=== PATIENT | female | born 1950 | race Caucasian/White ===

== ENCOUNTER 2016-10-31 09:06 | Emergency (ER) | payer MEDICARE ==
[2016-10-31 09:13] VITALS: BP 134/71
--- NOTE | 2016-10-31 09:57 | ER Document Report ---
HPI - HPI Pain Level: 3 Notes: Patient is a 66-year-old female who presents the ED complaining of a dry nonproductive cough 3 days. Patient states that her illness began with nasal congestion/discharge which then turned into a sore throat and then ended in a cough. Patient has not been using any exqk-[id number]-[id number] meds for her symptoms. She has not noticed any wheezing or trouble breathing. Patient states that she smokes 1 cigarette every 1-2 weeks. She denies any history of COPD or asthma. Denies any history of ID, CVA, PE. Denies any hormone use, distance travel, or recent surgery. Patient states that the cough is not worsening, but is remaining persistent. She still eating and drinking without any difficulties. Patient states that she is still able to ambulate without any difficulties or worsening of her symptoms. Denies any headache, fever, neck pain/stiffness, current sore throat, chest pain, palpitations, syncope, shortness of breath, wheeze, dyspnea, abdominal pain, nausea/vomiting/diarrhea, urinary retention, dysuria, hematuria, or rash. - ROS Notes: REVIEW OF SYSTEMS: CONSTITUTIONAL : Denies fever, chills, or sweats. Denies recent illness. EENT: Denies eye, ear, throat, or mouth pain or symptoms. Denies nasal or sinus congestion or discharge. Denies throat, tongue, or mouth swelling or difficulty swallowing. CARDIOVASCULAR: Denies chest pain. Denies palpitations or racing or irregular heart beat. Denies ankle edema. RESPIRATORY: see hpi GASTROINTESTINAL: Denies abdominal pain or distention. Denies nausea, vomiting , or diarrhea. Denies blood in vomitus, stools, or per rectum. Denies black, tarry stools. Denies constipation. GENITOURINARY: Denies difficulty urinating, painful urination, burning, frequency, blood in urine, or discharge. MUSCULOSKELETAL: Denies back or neck pain or stiffness. Denies joint pain or swelling. SKIN: Denies rash, lesions or sores. NEUROLOGICAL: Denies confusion or altered mental status. Denies passing out or loss of consciousness. Denies dizziness or lightheadedness. Denies headache. Denies weakness or paralysis or loss of use of either side. Denies problems with gait or speech. Denies sensory loss, numbness, or tingling. ALL OTHER SYSTEMS REVIEWED AND NEGATIVE. Dictation was performed using [employer] voice recognition software - CARDIOVASCULAR Cardiovascular: DENIES: Chest pain - DERM Skin Color: Normal Past Medical History - Social History Smoking Status: Current Some Day Smoker Chew tobacco use (# tins/day): No Frequency of alcohol use: None Drug Abuse: None Family History: Reviewed & Not Pertinent Patient has suicidal ideation: No Patient has homicidal ideation: No Renal/ Medical History: Denies: Hx Peritoneal Dialysis Psychiatric Medical History: Reports: Hx Depression - Anxiety - Immunizations Hx Diphtheria, Pertussis, Tetanus Vaccination: No Vertical Provider Document - CONSTITUTIONAL Agree With Documented VS: Yes Notes: PHYSICAL EXAMINATION: GENERAL: Well-appearing, well-nourished and in no acute distress. HEAD: Atraumatic, normocephalic. EYES: Pupils equal round and reactive to light, extraocular movements intact, sclera anicteric, conjunctiva are normal. ENT: EAC clear b/l. TM's intact b/l without erythema, fluid, or perforation. Nares patent and without discharge. oropharynx clear without exudates. No tonsilar hypertrophy or erythema. Moist mucous membranes. No sinus tenderness. NECK: Normal range of motion, supple without lymphadenopathy LUNGS: Breath sounds clear to auscultation bilaterally and equal. No wheezes rales or rhonchi. HEART: Regular rate and rhythm without murmurs, rubs, gallops. Extremities: No cyanosis, clubbing, or edema b/l. Peripheral pulses 2+. Capillary refill less than 3 seconds. Derrell neg. NEUROLOGICAL: Cranial nerves grossly intact. Normal speech, normal gait. Normal sensory, motor exams PSYCH: Normal mood, normal affect. SKIN: Warm, Dry, normal turgor, no rashes or lesions noted. - INFECTION CONTROL TRAVEL OUTSIDE OF THE [place] IN LAST 30 DAYS: No - RESPIRATORY O2 Sat by Pulse Oximetry: 95 Course - Re-evaluation Re-evalutation: 10/31/16 09:59 Patient is an afebrile, well-hydrated, 66-year-old female who presents the ED with acute URI, suspect viral at this time. Vitals are stable. PE otherwise unremarkable. No imaging warranted at this time based on H&P. Low suspicion/ risk for any ACS, PE, pericarditis, dissection, pneumothorax, sepsis, meningitis. Patient is aware that her condition can change from initial presentation and she needs to monitor symptoms closely and seek medical attention if any acute changes. I will send her home with a prescription for Tessalon Perles. Conservative measures otherwise for symptoms. Recheck with your PCM in the next 2-3 days. Return to the ED with any worsening/concerning symptoms otherwise as reviewed in discharge. Patient is in agreement. - Vital Signs Vital signs: Temp Pulse Resp BP Pulse Ox 98.9 F 85 20 134/71 H 95 10/31/16 09:10 10/31/16 09:10 10/31/16 09:10 10/31/16 09:10 10/31/16 09:10 Discharge - Discharge Clinical Impression: URI (upper respiratory infection) Qualifiers: URI type: unspecified URI Qualified Code(s): J06.9 - Acute upper respiratory infection, unspecified Condition: Stable Disposition: HOME, SELF-CARE Instructions: Viral Syndrome ([facility]), Upper Respiratory Illness ([facility]) Additional Instructions: Maintain adequate fluid intake Take meds as directed tylenol/ibuprofen as needed over the counter cold medication as needed for symptoms Humidified air may help F/u: with your PCM in 2-3 days for a recheck Return to the ED with any fever, worsening pain, chest pain, palpitations, syncope, worsening JOY, neck pain/stiffness, shortness of breath, wheezing, drooling, trouble swallowing/breathing, abdominal pain, n/v/d, rash, or worsening/concerning symptoms otherwise. Prescriptions: Benzonatate [Tessalon Perle 100 mg Capsule] 100 mg PO Q8HP PRN #30 cap PRN Reason: Forms: Elevated Blood Pressure, Smoking Cessation Education Referrals: CALISTA LEE DO [NO LOCAL MD] - Follow up in 3-5 days
== END 2016-10-31 10:12 | disposition home or self-care (01) ==
LOC: ER 09:06
DX: J06.9 Acute upper respiratory infection, unspecified (principal); R05 Cough; F17.210 Nicotine dependence, cigarettes, uncomplicated
CPT/HCPCS: 99283

== ENCOUNTER 2017-01-11 16:21 | Emergency (ER) | payer MEDICARE, MEDICAID ==
[2017-01-11] MEDS ORDERED: LIDOCAINE 5% (700 MG) TRANSDERMAL ADH..PATCH TP ONE (17:34)
--- NOTE | 2017-01-11 17:41 | ER Document Report ---
ED Neck/Back Problem <THOMAS AREVALO - Last Filed: 01/11/17 18:20> - General Mode of Arrival: Ambulatory Information source: Patient TRAVEL OUTSIDE OF THE [place] IN LAST 30 DAYS: No - HPI Patient complains to provider of: Pain, Neck Onset: Other - 3 days Onset: Chronic Timing: Still present Quality of pain: Sharp - Type Severity: Moderate Pain Level: 4 Context: Turning Recent injury: No Associated symptoms: Other - Left neck and headache Exacerbated by: Movement of neck Relieved by: Nothing Similar symptoms previously: Yes Recently seen / treated by doctor: No <NAS MERCHANT - Last Filed: 01/11/17 20:31> - General Chief Complaint: Neck Pain >24hrs old Stated Complaint: HEADACHE,NECK PAIN Time Seen by Provider: 01/11/17 17:20 Notes: 66-year-old female presents to ED for complaint of pain to the left shoulder that causes pain to go up her shoulder up her neck into her head. She states is been going on for about 3 days. She states she took Valium 10 mg last night but has not had any relief from this pain yet. She states she has been having these "knots in her neck they go up her head and because headaches off and on for 20 years usually she gets a trigger point injection and it goes away. ( NAS MERCHANT) - Related Data Allergies/Adverse Reactions: amoxicillin Allergy (Verified 01/11/17 16:22) Past Medical History - General Information source: Patient - Social History Smoking Status: Former Smoker Cigarette use (# per day): No Chew tobacco use (# tins/day): No Smoking Education Provided: No Frequency of alcohol use: Social Drug Abuse: None Lives with: Friend Family History: CAD, COPD, CVA, DM, Hyperlipidemia, Hypertension, Malignancy. denies: Arthritis, Thyroid Disfunction Patient has suicidal ideation: No Patient has homicidal ideation: No - Past Medical History Cardiac Medical History: Reports: None Pulmonary Medical History: Reports: None EENT Medical History: Reports: None Neurological Medical History: Reports: Hx Cerebrovascular Accident, Hx Migraine Endocrine Medical History: Reports: None Renal/ Medical History: Reports: None Malignancy Medical History: Reports: None GI Medical History: Reports: Other - Pancreatitis Musculoskeltal Medical History: Reports Hx Musculoskeletal Deformity, Reports Hx Musculoskeletal Trauma Skin Medical History: Reports None Psychiatric Medical History: Reports: Hx Anxiety, Hx Bipolar Disorder, Hx Depression Traumatic Medical History: Reports: Hx Fractures - Wrist and left foot Infectious Medical History: Reports: None Past Surgical History: Reports: Hx Orthopedic Surgery - Back surgery 2 - Immunizations Hx Diphtheria, Pertussis, Tetanus Vaccination: No <[email or web address] - Last Filed: 01/11/17 20:31> Physical Exam - Vital signs Interpretation: Normal - General General appearance: Appears well, Alert - HEENT Head: Normocephalic, Atraumatic Eyes: Normal Pupils: PERRL - Respiratory Respiratory status: No respiratory distress Chest status: Nontender Breath sounds: Normal Chest palpation: Normal - Cardiovascular Rhythm: Regular Heart sounds: Normal auscultation Murmur: No - Abdominal Inspection: Normal Distension: No distension Bowel sounds: Normal Tenderness: Nontender Organomegaly: No organomegaly - Back Back: Normal, Tender - Upper left back trapezius levator scapular area. No: Vertebra tenderness - Extremities General upper extremity: Normal inspection, Nontender, Normal color, Normal ROM , Normal temperature General lower extremity: Normal inspection, Nontender, Normal color, Normal ROM , Normal temperature, Normal weight bearing. No: Derrell's sign - Neurological Neuro grossly intact: Yes Cognition: Normal Orientation: AAOx4 Martin Coma Scale Eye Opening: Spontaneous [place] Coma Scale Verbal: Oriented [place] Coma Scale Motor: Obeys Commands [place] Coma Scale Total: 15 Speech: Normal Motor strength normal: LUE, RUE, LLE, RLE Sensory: Normal - Psychological Associated symptoms: Normal affect, Normal mood - Skin Skin Temperature: Warm Skin Moisture: Dry Skin Color: Normal <JERRIEvaristoMARTAJUNGNAS - Last Filed: 01/11/17 20:31> - Vital signs Vitals: Temp Pulse Resp BP Pulse Ox 98.1 F 80 20 140/68 H 99 01/11/17 16:28 01/11/17 16:28 01/11/17 16:28 01/11/17 16:28 01/11/17 16:28 - Vital Signs Vital signs: Temp Pulse Resp BP Pulse Ox 98.5 F 65 20 169/77 H 100 01/11/17 18:53 01/11/17 18:53 01/11/17 16:28 01/11/17 18:53 01/11/17 18:53 Procedures - Additional Procedures Trigger point injection Time performed: 18:25 <THOMAS AREVALO - Last Filed: 01/11/17 18:20> <NAS MERCHANT - Last Filed: 01/11/17 20:31> - Additional Procedures Trigger point injection Notes: 01/11/17 18:25 I was asked to perform a trigger point injection near the left levator scapula mm. 40mg of kenalog was combined with 1cc of sensorcaine in a 5cc syringe with a 25 g needle Skin was cleaned with iodine/alcohol swabs Trigger point was located and injected. pt had relief of symptoms within 30 seconds indicating appropriate placement Pt tolerated procedure well w/o complications bandaide placed no blood loss (THOMAS AREVALO) Discharge <THOMAS AREVALO - Last Filed: 01/11/17 18:20> <NAS MERCHANT - Last Filed: 01/11/17 20:31> - Discharge Clinical Impression: Myalgia Headache Qualifiers: Headache type: unspecified Headache chronicity pattern: chronic headache Intractability: not intractable Qualified Code(s): R51 - Headache Condition: Stable Disposition: HOME, SELF-CARE Instructions: Family Physicians / Practices Additional Instructions: HEADACHE: The physician does not feel that the headache you are experiencing has a serious underlying cause. Most headaches are due to emotional stress, with resultant muscle tension (tension headache). Occasionally, headaches are secondary to changes in the blood vessels of the scalp (vascular headache and migraine headache). Sometimes, a headache is the first symptom of another developing illness, such as a viral infection. You have no evidence of stroke, bleeding, meningitis, or other serious cause of your headache. The treatment of headaches varies with the severity and cause of the pain. Not all headaches need pain shots. In fact, there is evidence that using narcotics for headaches may make them worse in the long run. The physician will determine the therapy that's in your best interest. If you develop a fever, if the headache is different from any you've previously experienced, or if the headache progressively worsens, then call your physician at once or go to the emergency room. Myalagia (Muscle Pain) Myalgia is pain in the muscles. We use the word myalgia to describe muscle pain where there's no history of injury, no known muscle disease, and the muscles are normal to examination. Myalgias can be a symptom of an acute illness , such as influenza, hepatitis, or any viral illness, especially with fever. Sometimes the muscle pain comes before any other symptoms. Myalgia can also be an early symptom of inflammatory muscle disease, such as lupus. If myalgia is accompanied by an acute illness that explains the muscle pain , then no further testing needs to be done. When there's no clear reason for the pain, tests may be done to see if there's an inflammatory or other disease of the muscles. The usual treatment for myalgias is anti-inflammatory medication, such as ibuprofen. Muscle aches may be soothed with a heating pad or hot compress. If muscles remain painful for more than a few days, you'll need testing and followup. Return if a muscle becomes swollen, red, or severely painful. USE OF DIPHENHYDRAMINE: Diphenhydramine (Benadryl) is an antihistamine and has been recommended to help treat your headache and to prevent side effects of other medications used to treat headaches. The medication can be repeated four times daily. Age Elixir (12.5 mg/tsp) 25 mg pill adult 1-2 tabs Antihistamines may cause drowsiness, especially with the first dose. Do not operate machinery or drive while under the effects of the medication. Do not combine the medication with alcohol, or with any other medication without talking to your doctor. COMPAZINE FOR HEADACHE: You have received therapy for headaches, using intravenous Compazine. This treatment is dramatically successful in relieving the headache in about 50 percent of cases. When it works, it provides a rapid method of eliminating the headache without resorting to narcotics (and the problems associated with them). Most patients still feel fully alert after the Compazine, but others may be slightly drowsy. It's best not to drive or work with machinery for six to eight hours. Do not take alcohol or other medication unless you discuss it with the doctor. If you develop tightness and spasms in your muscles, especially the neck and tongue, you should return. This is a side effect which can be treated. Since he did the trigger point injection I cannot do the Lidoderm patch as we discussed. You can use Aspercreme starting tomorrow morning to the area if it continues to hurt. Take your Valium tonight before you go to bed for the muscle pain and follow-up with your primary doctor on Friday FOLLOW-UP CARE: If you have been referred to a physician for follow-up care, call the physician s office for an appointment as you were instructed or within the next two days. If you experience worsening or a significant change in your symptoms, notify the physician immediately or return to the Emergency Department at any time for re-evaluation. Prescriptions: Prochlorperazine Maleate [Compazine 10 mg Tablet] 10 mg PO ASDIR PRN #10 tablet PRN Reason: Forms: Elevated Blood Pressure Referrals: [facility] [Provider Group] - Follow up as needed
[2017-01-11] MEDS ORDERED: BUPIVACAINE HCL 0.75% INJ/PF (7.5 MG/1 ML) 10 ML SDV INJ ONE (18:09)
[2017-01-11] MEDS ORDERED: TRIAMCINOLONE ACETONIDE INJ 40 MG/1 ML VIAL INJ ONE (18:09)
[2017-01-11 18:56] VITALS: BP 169/77
== END 2017-01-11 18:56 | disposition home or self-care (01) ==
LOC: ER 16:21
DX: M25.512 Pain in left shoulder (principal); M54.2 Cervicalgia; R51 Headache; Z87.891 Personal history of nicotine dependence; Z88.0 Allergy status to penicillin; Z86.73 Personal history of transient ischemic attack (TIA), and cerebral infarction without residual deficits; Z86.69 Personal history of other diseases of the nervous system and sense organs
CPT/HCPCS: 99283; 20552; J3490

== ENCOUNTER 2017-02-02 12:23 | Emergency (ER) | payer MEDICARE, MEDICAID ==
--- NOTE | 2017-02-02 12:54 | ER Document Report ---
HPI - HPI Patient complains to provider of: Possible UTI and sinus infection Onset: Other Onset/Duration: Gradual Quality of pain: Burning Severity: Moderate Pain Level: 4 Context: Patient states she has had urinary symptoms 4 days. Denies fever, no nausea or vomiting. States she has been having problems with her sinuses for the last 4 weeks. Has not taken any riwy-obx-bftxmna medications other than normal saline spray. Associated Symptoms: Sinus pain/drainage. denies: Fever Exacerbated by: Denies Relieved by: Denies Similar symptoms previously: Yes Recently seen / treated by doctor: No - ROS ROS below otherwise negative: Yes Systems Reviewed and Negative: Yes All other systems reviewed and negative - CONSTITUTIONAL Constitutional: DENIES: Fever - EENT EENT: REPORTS: Congestion - NEURO Neurology: DENIES: Headache - CARDIOVASCULAR Cardiovascular: DENIES: Chest pain - RESPIRATORY Respiratory: DENIES: Trouble Breathing - GASTROINTESTINAL Gastrointestinal: DENIES: Abdominal Pain - URINARY Urinary: REPORTS: Dysuria, Urgency, Frequency Notes: Unsure if any blood in the urine as she has been taking Azo - REPRODUCTIVE Reproductive: DENIES: : - MUSCULOSKELETAL Musculoskeletal: DENIES: Extremity pain - DERM Skin Color: Normal Past Medical History - General Information source: Patient - Social History Smoking Status: Former Smoker Frequency of alcohol use: Occasional Drug Abuse: None Lives with: Family Family History: CAD, COPD, CVA, DM, Hyperlipidemia, Hypertension, Malignancy - Past Medical History Cardiac Medical History: Reports: Hx Heart Attack Neurological Medical History: Reports: Hx Cerebrovascular Accident, Hx Migraine Musculoskeltal Medical History: Reports Hx Musculoskeletal Deformity, Reports Hx Musculoskeletal Trauma Psychiatric Medical History: Reports: Hx Anxiety, Hx Bipolar Disorder, Hx Depression Traumatic Medical History: Reports: Hx Fractures - Wrist and left foot Past Surgical History: Reports: Hx Cardiac Catheterization, Hx Orthopedic Surgery - Back surgery 2 - Immunizations Hx Diphtheria, Pertussis, Tetanus Vaccination: No Vertical Provider Document - CONSTITUTIONAL Agree With Documented VS: Yes Exam Limitations: No Limitations General Appearance: WD/WN, No Apparent Distress - INFECTION CONTROL TRAVEL OUTSIDE OF THE [place] IN LAST 30 DAYS: No - HEENT HEENT: Atraumatic, Normocephalic - NECK Neck: Normal Inspection, Supple - RESPIRATORY Respiratory: Breath Sounds Normal, No Respiratory Distress O2 Sat by Pulse Oximetry: 94 - CARDIOVASCULAR Cardiovascular: Regular Rate, Regular Rhythm - GI/ABDOMEN Gastrointestinal: Abdomen Soft, Abdomen Tender - Mild suprapubic tenderness - BACK Back: CVA Tenderness-Right - Mild, CVA Tenderness-Left - MUSCULOSKELETAL/EXTREMETIES Musculoskeletal/Extremeties: KARL DENIS - NEURO Level of Consciousness: Awake, Alert, Appropriate - DERM Integumentary: Warm, Dry Course - Re-evaluation Re-evalutation: 02/02/17 13:39 Patient does have a urinary infection and this was discussed with her. States she does not have the money till Friday to get her antibiotic filled and is requesting an antibiotic shot. - Vital Signs Vital signs: Temp Pulse Resp BP Pulse Ox 94 02/02/17 12:48 Discharge - Discharge Clinical Impression: URI (upper respiratory infection) Qualifiers: URI type: unspecified URI Qualified Code(s): J06.9 - Acute upper respiratory infection, unspecified UTI (urinary tract infection) Qualifiers: Urinary tract infection type: site unspecified Hematuria presence: with hematuria Qualified Code(s): N39.0 - Urinary tract infection, site not specified ; R31.9 - Hematuria, unspecified; R31.9 - Hematuria, unspecified Condition: Good Disposition: HOME, SELF-CARE Instructions: Upper Respiratory Illness ([facility]), Acetaminophen, Trimethoprim- Sulfa ([facility]), Urinary Tract Infection ([facility]) Additional Instructions: Take all antibiotics as prescribed Push fluids Any nplv-[id number]-oyonyoh cough cold medication for cold symptom relief Tylenol as needed Follow-up with your doctor next week for recheck Return as needed Prescriptions: Sulfamethoxazole/Trimethoprim [Bactrim Ds Tablet] 1 each PO BID #14 tablet
[2017-02-02 13:14] LABS: APPEARANCE,URINE SLIGHTLY-CLOUDY; BILIRUBIN,URINE NEGATIVE (NEGATIVE); GLUCOSE, URINE NEGATIVE (NEGATIVE); KETONES,URINE NEGATIVE (NEGATIVE); LEUKOCYTE ESTERASE,URINE LARGE (NEGATIVE); NITRITE,URINE POSITIVE (NEGATIVE); PROTEIN,URINE NEGATIVE (NEGATIVE); URINE SPECIFIC GRAVITY 1.004
[2017-02-02] MEDS ORDERED: LIDOCAINE 1% INJ-PF (10 MG/ML) 30 ML SDV INJ ONE (13:27)
[2017-02-02] MEDS ORDERED: CEFTRIAXONE INJ 1000 MG VIAL IM ONE (13:27)
== END 2017-02-02 14:00 | disposition home or self-care (01) ==
LOC: ER 12:23
DX: J06.9 Acute upper respiratory infection, unspecified (principal); N39.0 Urinary tract infection, site not specified; R31.9 Hematuria, unspecified; Z87.891 Personal history of nicotine dependence; Z86.73 Personal history of transient ischemic attack (TIA), and cerebral infarction without residual deficits; I25.2 Old myocardial infarction
CPT/HCPCS: 99283; 96372; 87086; 87088; 81001; 87186; J3490; J0696

== ENCOUNTER 2018-02-08 13:39 | Inpatient (IN) | payer MEDICARE, MEDICAID ==
--- NOTE | 2018-02-08 14:02 | ER Document Report ---
ED General - General Chief Complaint: Urinary Problem Stated Complaint: ABDOMINAL PAIN,PAINFUL URINATION Time Seen by Provider: 02/08/18 13:45 Notes: Patient is a 69-year-old female with history of recurrent UTIs that presents to the emergency department for chief complaint of suprapubic pain. Patient states that she was diagnosed with a UTI approximately 10 days ago by her primary care physician, she was started on an antibiotic, as well as Pyridium, she took this for 7 days with no help of her symptoms, she was then switched to ciprofloxacin, she is taken 3 days of, without relief of her pain, so she decided come to the emergency department. She denies any fevers, did have some sweats and chills, but denies having any hematuria, nausea, vomiting, headache, lightheadedness, chest pain, shortness of breath, diarrhea. She also denies having any vaginal symptoms such as discharge or abnormal bleeding. She states she typically does get better with antibiotics, she has been required to see a urologist in the past, when she is had persistent pain after having a UTI. Past Medical History: Recurrent UTIs, depression Past Surgical History: Neck surgery, back surgery Social History: Denies tobacco, alcohol or illicit drug use. Family History: Reviewed and noncontributory for presenting illness Allergies: Reviewed, see documented allergy list. REVIEW OF SYSTEMS: Other than noted above, the 12 point review of systems was reviewed with the patient and were negative, all pertinent findings are included in the HPI. PHYSICAL EXAMINATION: Vital signs reviewed, nursing noted reviewed. GENERAL: Well-appearing, well-nourished and in no acute distress. HEAD: Atraumatic, normocephalic. EYES: Eyes appear normal, extraocular movements intact, sclera anicteric, conjunctiva are normal. ENT: nares patent, oropharynx clear without exudates. Moist mucous membranes. NECK: Normal range of motion, supple without lymphadenopathy LUNGS: Breath sounds clear to auscultation bilaterally and equal. No wheezes rales or rhonchi. HEART: Regular rate and rhythm without murmurs ABDOMEN: Soft, suprapubic tenderness with palpation, normoactive bowel sounds. No rebound, guarding, or rigidity. No masses appreciated. EXTREMITIES: Nontender, good range of motion, no pitting or edema. NEUROLOGICAL: No focal neurological deficits. Moves all extremities spontaneously Motor and sensory grossly intact on exam. PSYCH: Normal mood, normal affect. SKIN: Warm, Dry, normal turgor, no rashes or lesions noted on exposed skin TRAVEL OUTSIDE OF THE [place] IN LAST 30 DAYS: No - Related Data Allergies/Adverse Reactions: amoxicillin Allergy (Verified 02/08/18 13:41) Past Medical History - Social History Smoking Status: Former Smoker Family History: CAD, COPD, CVA, DM, Hyperlipidemia, Hypertension, Malignancy Patient has suicidal ideation: No Patient has homicidal ideation: No - Past Medical History Cardiac Medical History: Reports: Hx Heart Attack Neurological Medical History: Reports: Hx Cerebrovascular Accident, Hx Migraine Renal/ Medical History: Denies: Hx Peritoneal Dialysis Musculoskeletal Medical History: Reports Hx Musculoskeletal Deformity, Reports Hx Musculoskeletal Trauma Psychiatric Medical History: Reports: Hx Anxiety, Hx Bipolar Disorder, Hx Depression Traumatic Medical History: Reports: Hx Fractures - Wrist and left foot Past Surgical History: Reports: Hx Cardiac Catheterization, Hx Orthopedic Surgery - Back surgery 2 - Immunizations Hx Diphtheria, Pertussis, Tetanus Vaccination: No Physical Exam - Vital signs Vitals: Temp Pulse Resp BP Pulse Ox 99.3 F 89 16 172/100 H 99 02/08/18 13:53 02/08/18 13:53 02/08/18 13:53 02/08/18 13:53 02/08/18 13:53 Course - Re-evaluation Re-evalutation: Patient seen and examined vital signs reviewed. Laboratory data and imaging were ordered as appropriate for the patient's presenting symptoms and complaint, with consideration of any critical or life threatening conditions that may be associated with their obtained history and exam as noted above. Patient was treated with [place] initially for pain, and given IM Rocephin, she still had nitrite positive urine, still having pain, given a dose of IM Dilaudid Results were reviewed when available and demonstrated significant and severe hyponatremia of 123, possible SIADH, versus polydipsia as the patient states she has been drinking lots of free water, because of this, I feel the patient needs to be admitted for her severe hyponatremia, and also treated for her UTI. Testing for hyponatremia including serum and urine osmolality, and urine sodium were ordered. The patient was re-evaluated and was stable Evaluation was most consistent with UTI, severe hyponatremia Results were discussed with the patient at this point after careful consideration I feel that that patient should be admitted to the hospital. This was discussed with the patient that it is in the best interest for their care to be admitted for further evaluation and management. Patient agreed with this plan of care. A call was placed to the admitted physician, Dr. Encarnacion who graciously accepted the patient onto their service. *Note is created using voice recognition software and may contain spelling, syntax or grammatical errors. Laboratory 02/08/18 02/08/18 02/08/18 14:00 14:40 14:40 WBC 9.6 RBC 4.52 Hgb 9.2 L Hct 29.6 L MCV 66 L MCH 20.3 L MCHC 31.0 L RDW 18.7 H Plt Count 365 Seg Neutrophils % 77.1 Lymphocytes % 15.0 Monocytes % 6.2 Eosinophils % 1.0 Basophils % 0.7 Absolute Neutrophils 7.4 Absolute Lymphocytes 1.4 Absolute Monocytes 0.6 Absolute Eosinophils 0.1 Absolute Basophils 0.1 Sodium 123.4 L Potassium 4.4 Chloride 88 L Carbon Dioxide 24 Anion Gap 11 BUN 6 L Creatinine 0.70 Est GFR ( Amer) > 60 Est GFR (Non-Af Amer) > 60 Glucose 102 Serum Osmolality Calcium 9.8 Urine Color SARI Urine Appearance CLEAR Urine pH 7.0 Ur Specific [place] 1.004 Urine Protein NEGATIVE Urine Glucose (UA) NEGATIVE Urine Ketones NEGATIVE Urine Blood NEGATIVE Urine Nitrite POSITIVE H Urine Bilirubin NEGATIVE Urine Urobilinogen 4.0 H Ur Leukocyte Esterase NEGATIVE Urine WBC (Auto) 0 Urine RBC (Auto) 0 Urine Bacteria (Auto) TRACE Squamous Epi Cells Auto <1 Urine Mucus (Auto) RARE Urine Ascorbic Acid NEGATIVE 02/08/18 14:40 WBC RBC Hgb Hct MCV MCH MCHC RDW Plt Count Seg Neutrophils % Lymphocytes % Monocytes % Eosinophils % Basophils % Absolute Neutrophils Absolute Lymphocytes Absolute Monocytes Absolute Eosinophils Absolute Basophils Sodium Potassium Chloride Carbon Dioxide Anion Gap BUN Creatinine Est GFR ( Amer) Est GFR (Non-Af Amer) Glucose Serum Osmolality 251 L Calcium Urine Color Urine Appearance Urine pH Ur Specific [place] Urine Protein Urine Glucose (UA) Urine Ketones Urine Blood Urine Nitrite Urine Bilirubin Urine Urobilinogen Ur Leukocyte Esterase Urine WBC (Auto) Urine RBC (Auto) Urine Bacteria (Auto) Squamous Epi Cells Auto Urine Mucus (Auto) Urine Ascorbic Acid - Vital Signs Vital signs: Temp Pulse Resp BP Pulse Ox 98.9 F 62 16 127/59 H 96 02/08/18 18:38 02/08/18 19:00 02/08/18 18:38 02/08/18 18:38 02/08/18 18:38 - Laboratory Result Diagrams: 02/08/18 14:40 02/08/18 17:59 Laboratory results interpreted by me: 02/08/18 02/08/18 02/08/18 14:00 14:00 14:40 Hgb Hct MCV MCH MCHC RDW Sodium 123.4 L Chloride 88 L BUN 6 L Serum Osmolality Uric Acid Urine Nitrite POSITIVE H Urine Urobilinogen 4.0 H Urine Osmolality 178 L 02/08/18 02/08/18 02/08/18 14:40 14:40 14:40 Hgb 9.2 L Hct 29.6 L MCV 66 L MCH 20.3 L MCHC 31.0 L RDW 18.7 H Sodium Chloride BUN Serum Osmolality 251 L Uric Acid 1.6 L Urine Nitrite Urine Urobilinogen Urine Osmolality - EKG Interpretation by Me Additional EKG results interpreted by me: EKG demonstrates sinus rhythm with a ventricular rate of 65 bpm, normal axis, normal intervals, there are T wave inversions in leads V4 and V5, this is compared with prior EKG from 05/06/2017, without significant change. Procedures - Ultrasound/Bedside Ultrasound/Bedside Ultrasound: Other Notes: BLADDER US LIMITED: Reason for exam: Suprapubic pain The patient was examined in the supine position, the bladder was visualized, and scanned across, there was some sediment in the dependent aspect of the bladder, no stones, there was noted to be what appeared to be a right-sided large bladder diverticula, no overdistention of the bladder otherwise. Tenderness with palpation with the ultrasound probe during exam. Critical Care Note - Critical Care Note Total time excluding time spent on procedures (mins): 37 Comments: Critical care time 37 minutes exclusive from separate billable procedures for a patient requiring complex medical decision making, and high potential for clinical deterioration. In a patient with severe hyponatremia requiring admission to the hospital. Time spent obtaining history from patient or surrogate, discussions with consultants, development of treatment plan with patient or surrogate, evaluation of patient's response to treatment, examination of patient, ordering and performing treatments and interventions, ordering and review of laboratory studies, re-evaluation of patient's condition, ordering and review of radiographic studies and review of old charts Discharge - Discharge Clinical Impression: Hyponatremia UTI (urinary tract infection) Qualifiers: Urinary tract infection type: acute cystitis Hematuria presence: without hematuria Qualified Code(s): N30.00 - Acute cystitis without hematuria Condition: Stable Disposition: ADMITTED INPATIENT Admitting Provider: Hospitalist - Dr. Encarnacion Unit Admitted: Telemetry
[2018-02-08] MEDS ORDERED: KETOROLAC TROMETHAMINE INJ/PF 30 MG/1 ML SDV IV ONE (14:21)
[2018-02-08] MEDS ORDERED: NORMAL SALINE 500 ML IV ONE (14:21)
[2018-02-08] MEDS ORDERED: HYDROCODONE/ACETAMINOPHEN 5-325 MG TABLET PO ONE (14:34)
[2018-02-08 14:37] LABS: APPEARANCE,URINE CLEAR; BILIRUBIN,URINE NEGATIVE (NEGATIVE); COLOR,URINE AMBER; GLUCOSE, URINE NEGATIVE (NEGATIVE); KETONES,URINE NEGATIVE (NEGATIVE); LEUKOCYTE ESTERASE,URINE NEGATIVE (NEGATIVE); NITRITE,URINE POSITIVE (NEGATIVE); PROTEIN,URINE NEGATIVE (NEGATIVE); URINE SPECIFIC GRAVITY 1.004
[2018-02-08 15:06] LABS: ABSOLUTE BASOPHILS # (AUTO) 0.1 10^3/uL (0.0-0.2); ABSOLUTE EOSINOPHILS # (AUTO) 0.1 10^3/uL (0.0-0.6); ABSOLUTE LYMPHOCYTES (AUTO) 1.4 10^3/uL (0.5-4.7); ABSOLUTE MONOCYTES (AUTO) 0.6 10^3/uL (0.1-1.4); ABSOLUTE NEUT (AUTO) 7.4 10^3/uL (1.7-8.2); BASOPHILS % (AUTO) 0.7 % (0-2); HEMATOCRIT 29.6 % (36.0-47.0); HEMOGLOBIN 9.2 g/dL (12.0-15.5); MEAN CORPUSCULAR HEMOGLOBIN 20.3 pg (27.0-33.4); MEAN CORPUSCULAR VOLUME 66 fl (80-97); MONOCYTES % (AUTO) 6.2 % (3-13); PLATELET COUNT 365 10^3/uL (150-450); RED BLOOD COUNT 4.52 10^6/uL (3.72-5.28); RED CELL DISTRIBUTION WIDTH 18.7 % (11.5-14.0); SEGMENTED NEUTROPHILS % (AUTO) 77.1 % (42-78); TOTAL CELLS COUNTED % (AUTO) 100 %; WHITE BLOOD COUNT 9.6 10^3/uL (4.0-10.5)
[2018-02-08] MEDS ORDERED: CEFTRIAXONE INJ 1000 MG VIAL IM ONE (15:06)
[2018-02-08] MEDS ORDERED: LIDOCAINE 1% INJ-PF (10 MG/ML) 30 ML SDV INFIL ONE (15:06)
[2018-02-08] MEDS ORDERED: HYDROMORPHONE HCL INJ/PF 2 MG/ML AMPULE IM ONE (15:06)
[2018-02-08 15:15] LABS: ANION GAP 11 (5-19); BLOOD UREA NITROGEN 6 mg/dL (7-20); CALCIUM 9.8 mg/dL (8.4-10.2); CARBON DIOXIDE 24 mmol/L (22-30); CHLORIDE 88 mmol/L (98-107); GLUCOSE 102 mg/dL (75-110); POTASSIUM 4.4 mmol/L (3.6-5.0); SODIUM 123.4 mmol/L (137-145)
[2018-02-08] MEDS ORDERED: NORMAL SALINE 250 ML IV ONE (16:14)
[2018-02-08] MEDS ORDERED: ONDANSETRON HCL INJ/PF 4 MG/2 ML SDV IV PRN (16:23)
[2018-02-08] MEDS ORDERED: ACETAMINOPHEN 325 MG TABLET PO PRN (16:23)
[2018-02-08] MEDS ORDERED: HYDROMORPHONE HCL INJ/PF 2 MG/ML AMPULE IV PRN (16:28)
[2018-02-08] MEDS ORDERED: FUROSEMIDE INJ/PF 40 MG/4 ML SDV IV ONE (16:40)
[2018-02-08] MEDS ORDERED: LORAZEPAM INJ 2 MG/1 ML VIAL IV PRN (16:44)
[2018-02-08 16:53] LABS: URINE SODIUM 49 mmol/L (30-90)
[2018-02-08 16:56] LABS: OSMOLALITY,URINE 178 mOsm/kg (300-900)
--- NOTE | 2018-02-08 17:10 | PDOC H&P ---
History of Present Illness Admission Date/PCP: 02/08/18 16:01 CONSTANZA DOYLE MD Patient complains of: Painful urination. Suprapubic pain. History of Present Illness: STEPHANIE KOHLI is a 67 year old female with history of recurrent UTI, bladder diverticula, chronic back pain with back surgeries and neck surgeries, anxiety depression, came to the emergency room with complaints of suprapubic pain for 2 weeks. According to her she went to PCP twice initially she was started on Keflex then she is on Cipro still she is having suprapubic pain pain was intense 10 x 10 decided to came to the emergency room for further evaluation during the workup she is found to have severe hyponatremia sodium level of 123. Serum osmolality was sent it was 251. Urine osmolality and urine sodium is pending. Medical consult was called because of the low sodium. Fortunately we do not have a nephrology coverage today. Went to talk to the patient patient is alert and oriented communicating very well. Because of the recurrent UTI she said her suprapubic pain is 10 x 10. She is also complaining of nausea and vomiting at least 1-2 times for the last 2 weeks. Also saying she is drinking a lot of water and peeing a lot also. Also thinks she is on antidepressants and Lamictal/Latuda/trazodone. States she is compliant with her medications. She is alert and oriented communicating very well. Signs of any confusion. Any history of falls and dizziness. Past Medical History Cardiac Medical History: Reports: Coronary Artery Disease, Myocardial Infarction Neurological Medical History: Reports: Migraine Psychiatric Medical History: Reports: Bipolar Disorder, Depression Past Surgical History Past Surgical History: Reports: Cardiac Catheterization, Orthopedic Surgery - Back surgery 2 Social History Smoking Status: Former Smoker Frequency of Alcohol Use: Occasional - Advance Directive Resuscitation Status: Full Code Family History Family History: CAD, COPD, CVA, DM, Hyperlipidemia, Hypertension, Malignancy Parental Family History Reviewed: Yes - motherWith breast cancer father with colon cancer Children Family History Reviewed: Yes Sibling(s) Family History Reviewed.: Yes Medication/Allergy Home Medications: Diazepam 1 tab PO TID 02/08/18 Lamotrigine 1 tab PO DAILY 02/08/18 Phenazopyridine HCl [Pyridium] 100 mg PO Q8H 02/08/18 Trazodone HCl [Desyrel] 300 mg PO DAILY 02/08/18 Zolpidem Tartrate [Ambien] 10 mg PO DAILY 02/08/18 Allergies/Adverse Reactions: amoxicillin Allergy (Verified 02/08/18 13:41) Physical Exam Vital Signs: Temp Pulse Resp BP Pulse Ox 99.3 F 89 16 172/100 H 99 02/08/18 13:53 02/08/18 13:53 02/08/18 13:53 02/08/18 13:53 02/08/18 13:53 Intake & Output 02/07/18 02/08/18 02/09/18 06:59 06:59 06:59 Weight 56.5 kg General appearance: PRESENT: no acute distress, other Head exam: PRESENT: atraumatic Eye exam: PRESENT: PERRLA Mouth exam: PRESENT: moist Neck exam: ABSENT: carotid bruit, JVD, lymphadenopathy, thyromegaly Respiratory exam: PRESENT: clear to auscultation norman. ABSENT: rales, rhonchi, wheezes Cardiovascular exam: PRESENT: RRR. ABSENT: diastolic murmur, rubs, systolic murmur GI/Abdominal exam: PRESENT: normal bowel sounds, soft, other - Suprapubic tenderness on palpation.. ABSENT: distended, guarding, mass, organolmegaly, rebound, tenderness Neurological exam: PRESENT: alert, awake, oriented to person, oriented to place, oriented to time, oriented to situation, CN II-XII grossly intact. ABSENT: motor sensory deficit Psychiatric exam: PRESENT: appropriate affect, normal mood. ABSENT: homicidal ideation, suicidal ideation Results Laboratory Results: 02/08/18 14:40 02/08/18 14:40 02/08/18 02/08/18 02/08/18 14:00 14:40 14:40 WBC 9.6 RBC 4.52 Hgb 9.2 L Hct 29.6 L MCV 66 L MCH 20.3 L MCHC 31.0 L RDW 18.7 H Plt Count 365 Seg Neutrophils % 77.1 Lymphocytes % 15.0 Monocytes % 6.2 Eosinophils % 1.0 Basophils % 0.7 Absolute Neutrophils 7.4 Absolute Lymphocytes 1.4 Absolute Monocytes 0.6 Absolute Eosinophils 0.1 Absolute Basophils 0.1 Sodium 123.4 L Potassium 4.4 Chloride 88 L Carbon Dioxide 24 Anion Gap 11 BUN 6 L Creatinine 0.70 Est GFR ( Amer) > 60 Est GFR (Non-Af Amer) > 60 Glucose 102 Serum Osmolality Calcium 9.8 Urine Color SARI Urine Appearance CLEAR Urine pH 7.0 Ur Specific [place] 1.004 Urine Protein NEGATIVE Urine Glucose (UA) NEGATIVE Urine Ketones NEGATIVE Urine Blood NEGATIVE Urine Nitrite POSITIVE H Ur Leukocyte Esterase NEGATIVE Urine WBC (Auto) 0 Urine RBC (Auto) 0 02/08/18 14:40 WBC RBC Hgb Hct MCV MCH MCHC RDW Plt Count Seg Neutrophils % Lymphocytes % Monocytes % Eosinophils % Basophils % Absolute Neutrophils Absolute Lymphocytes Absolute Monocytes Absolute Eosinophils Absolute Basophils Sodium Potassium Chloride Carbon Dioxide Anion Gap BUN Creatinine Est GFR ( Amer) Est GFR (Non-Af Amer) Glucose Serum Osmolality 251 L Calcium Urine Color Urine Appearance Urine pH Ur Specific [place] Urine Protein Urine Glucose (UA) Urine Ketones Urine Blood Urine Nitrite Ur Leukocyte Esterase Urine WBC (Auto) Urine RBC (Auto) Assessment & Plan - Diagnosis (1) Hyponatremia Is this a current diagnosis for this admission?: Yes Plan: 02/08/2018-plan is to place the patient in IMCU. Nephrology consult was requested. Waiting for the urine osmolality and urine sodium levels. Requested for uric acid levels. Hyponatremia may be secondary to pain, nausea, antidepressant medications, polydipsia. Her pain I started her on Dilaudid 1 mg IV every 6 as needed. For nausea start her on Zofran 4 mg IV every 4 as needed. I am going to put her on fluid restriction 2 L/day. Given Lasix 40 mg IV 1 dose. Daily withheld antidepressants until the medication were reviewed by the e business specialist. Cortisol level was requested TSH level was requested. Neurochecks were requested. Patient fall seizure precautions were requested. strict Input and output chart was requested. (2) UTI (urinary tract infection) Qualifiers: Urinary tract infection type: acute cystitis Hematuria presence: without hematuria Qualified Code(s): N30.00 - Acute cystitis without hematuria Is this a current diagnosis for this admission?: Yes Plan: 02/08/2018-patient has history of recurrent UTI not responding to outpatient antibiotic therapy with Keflex and Cipro. Started on nitrofurantoin 100 mg p.o. twice daily. Urine cultures and blood cultures were requested. (3) Hypertension Is this a current diagnosis for this admission?: Yes Plan: Patient's latest blood pressure is 172/100. Denies any history of high blood pressure. High blood pressure may be secondary to pain and may be also due to increased fluid intake. I gave her Lasix 40 mg IV 1 dose. Patient is not in fl uid overload. But also the same time she is not hypovolemic. (4) Bipolar 1 disorder Is this a current diagnosis for this admission?: Yes Plan: 02/08/2018-patient now Lamictal, trazodone, Latuda at home. I am going to hold those medications in the setting of hyponatremia. Started her on Ativan 1 mg IV every 6 as needed for anxiety and agitation. (5) Coronary artery disease Is this a current diagnosis for this admission?: Yes Plan: 02/08/2018-patient is given the history of coronary artery disease with blocked arteries she denies she had any stent placements. Denies any chest pains at this time. - Time Time Spent: 50 to 70 Minutes Critical Time spent with patient: 15-24 minutes Medications reviewed and adjusted accordingly: Yes Anticipated discharge: Home
[2018-02-08] MEDS ORDERED: SODIUM CHLORIDE 1 GM TABLET PO ONE (17:17)
[2018-02-08 17:39] LABS: URINE AMPHETAMINES SCREEN NEGATIVE; URINE BARBITURATES SCREEN NEGATIVE; URINE BENZODIAZEPINES SCREEN NEGATIVE; URINE COCAINE SCREEN NEGATIVE; URINE MARIJUANA (THC) SCREEN NEGATIVE; URINE METHADONE SCREEN NEGATIVE; URINE PHENCYCLIDINE SCREEN NEGATIVE
[2018-02-08] MEDS: NITROFURANTOIN MONOHYD/M-CRYST 100 MG CAPSULE PO SCH (17:39)
[2018-02-08] MEDS: PHENAZOPYRIDINE HCL 100 MG TABLET PO SCH (17:39)
[2018-02-08] MEDS: DOCUSATE SODIUM 100 MG CAPSULE PO SCH (17:39)
[2018-02-08] MEDS ORDERED: SODIUM CHLORIDE 1 GM TABLET ONE (17:47)
[2018-02-08 18:24] LABS: ALANINE AMINOTRANSFERASE 18 U/L (9-52); ALBUMIN 4.5 g/dL (3.5-5.0); ALKALINE PHOSPHATASE 88 U/L (38-126); ANION GAP 11 (5-19); ASPARTATE AMINO TRANSFERASE 23 U/L (14-36); BILIRUBIN,TOTAL 0.6 mg/dL (0.2-1.3); BLOOD UREA NITROGEN 6 mg/dL (7-20); CARBON DIOXIDE 25 mmol/L (22-30); CHLORIDE 88 mmol/L (98-107); GLUCOSE 123 mg/dL (75-110); POTASSIUM 4.3 mmol/L (3.6-5.0); SODIUM 123.6 mmol/L (137-145); TOTAL PROTEIN 7.5 g/dL (6.3-8.2)
[2018-02-08] MEDS: SODIUM BICARBONATE 650 MG TABLET PO SCH (21:52)
[2018-02-08] MEDS: FAMOTIDINE 20 MG TABLET PO SCH (21:53)
[2018-02-08] MEDS: ZOLPIDEM TARTRATE 5 MG TABLET PO SCH (21:53)
[2018-02-08] MEDS ORDERED: TRAZODONE HCL 50 MG TABLET PO SCH (22:00)
--- NOTE | 2018-02-08 23:41 | EKG REPORT ---
SEVERITY:- ABNORMAL ECG - SINUS RHYTHM NONSPECIFIC T ABNORMALITIES, ANT-LAT LEADS : Confirmed by: Brooklynn Morrell 08-Feb-2018 23:40:46
[2018-02-09] MEDS ORDERED: PHENAZOPYRIDINE HCL 100 MG TABLET ONE (01:59)
[2018-02-09] MEDS: PHENAZOPYRIDINE HCL 100 MG TABLET PO SCH ×3 (02:00→21:59)
[2018-02-09 04:47] LABS: ABSOLUTE BASOPHILS # (AUTO) 0.1 10^3/uL (0.0-0.2); ABSOLUTE EOSINOPHILS # (AUTO) 0.2 10^3/uL (0.0-0.6); ABSOLUTE MONOCYTES (AUTO) 0.6 10^3/uL (0.1-1.4); ABSOLUTE NEUT (AUTO) 4.2 10^3/uL (1.7-8.2); BASOPHILS % (AUTO) 1.1 % (0-2); EOSINOPHILS % (AUTO) 2.6 % (0-6); LYMPHOCYTES % (AUTO) 28.3 % (13-45); MEAN CORPUSCULAR HEMOGLOBIN 20.3 pg (27.0-33.4); MEAN CORPUSCULAR VOLUME 66 fl (80-97); PLATELET COUNT 307 10^3/uL (150-450); RED BLOOD COUNT 4.43 10^6/uL (3.72-5.28); RED CELL DISTRIBUTION WIDTH 18.9 % (11.5-14.0); TOTAL CELLS COUNTED % (AUTO) 100 %; WHITE BLOOD COUNT 7.1 10^3/uL (4.0-10.5)
[2018-02-09 05:16] LABS: ALANINE AMINOTRANSFERASE 17 U/L (9-52); ALBUMIN 3.7 g/dL (3.5-5.0); ALKALINE PHOSPHATASE 72 U/L (38-126); ANION GAP 9 (5-19); ASPARTATE AMINO TRANSFERASE 19 U/L (14-36); BILIRUBIN,TOTAL 0.5 mg/dL (0.2-1.3); BLOOD UREA NITROGEN 11 mg/dL (7-20); CALCIUM 9.4 mg/dL (8.4-10.2); CARBON DIOXIDE 27 mmol/L (22-30); CHLORIDE 89 mmol/L (98-107); CHOLESTEROL 165.43 mg/dL (0-200); CREATINE KINASE 37 U/L (30-135); GLUCOSE 105 mg/dL (75-110); POTASSIUM 3.8 mmol/L (3.6-5.0); SODIUM 125.3 mmol/L (137-145); TOTAL PROTEIN 6.1 g/dL (6.3-8.2); TRIGLYCERIDES 83 mg/dL (<150)
[2018-02-09 05:27] LABS: DIRECT LDL 90 mg/dL (<100)
[2018-02-09 05:30] LABS: NT PRO BNP 1070 pg/mL (5-900)
[2018-02-09 05:38] LABS: TROPONIN I < 0.012 ng/mL
[2018-02-09] MEDS: OXYCODONE-ACETAMINOPHEN 5-325 MG TABLET PO PRN ×4 (06:18→22:47)
--- NOTE | 2018-02-09 06:51 | EKG REPORT ---
SEVERITY:- ABNORMAL ECG - SINUS RHYTHM PROBABLE ANTEROSEPTAL INFARCT, AGE INDETERM : Confirmed by: Brooklynn Morrell 09-Feb-2018 06:50:28
--- NOTE | 2018-02-09 09:47 | PDOC PROGRESS REPORT ---
Subjective Progress Note for:: 02/09/18 Subjective:: 02/09/2018 no acute events overnight dilated was changed to Percocet as per patient's request. Serum sodium on admission is 123 improved to 125.3. Patient is afebrile. Reason For Visit: HYPONATREMIA Physical Exam Vital Signs: Temp Pulse Resp BP Pulse Ox 97.8 F 75 16 108/54 L 95 02/09/18 07:10 02/09/18 07:10 02/09/18 07:10 02/09/18 07:10 02/09/18 07:10 Intake & Output 02/08/18 02/09/18 02/10/18 06:59 06:59 06:59 Intake Total 236 Output Total 1500 Balance -1264 Weight 59.5 kg General appearance: PRESENT: no acute distress Head exam: PRESENT: atraumatic Eye exam: PRESENT: PERRLA Mouth exam: PRESENT: moist Neck exam: ABSENT: carotid bruit, JVD, lymphadenopathy, thyromegaly Respiratory exam: PRESENT: clear to auscultation norman. ABSENT: rales, rhonchi, wheezes Cardiovascular exam: PRESENT: RRR. ABSENT: diastolic murmur, rubs, systolic murmur GI/Abdominal exam: PRESENT: normal bowel sounds, soft. ABSENT: distended, guarding, mass, organolmegaly, rebound, tenderness Extremities exam: PRESENT: full ROM. ABSENT: calf tenderness, clubbing, pedal edema Neurological exam: PRESENT: alert, awake, oriented to person, oriented to place, oriented to time, oriented to situation, CN II-XII grossly intact. ABSENT: motor sensory deficit Psychiatric exam: PRESENT: appropriate affect, normal mood. ABSENT: homicidal ideation, suicidal ideation Results Laboratory Results: 02/09/18 04:30 02/09/18 04:30 02/08/18 02/08/18 02/08/18 14:00 14:00 14:40 WBC RBC Hgb Hct MCV MCH MCHC RDW Plt Count Seg Neutrophils % Lymphocytes % Monocytes % Eosinophils % Basophils % Absolute Neutrophils Absolute Lymphocytes Absolute Monocytes Absolute Eosinophils Absolute Basophils Sodium 123.4 L Potassium 4.4 Chloride 88 L Carbon Dioxide 24 Anion Gap 11 BUN 6 L Creatinine 0.70 Est GFR ( Amer) > 60 Est GFR (Non-Af Amer) > 60 Glucose 102 Serum Osmolality Uric Acid Calcium 9.8 Magnesium Total Bilirubin AST ALT Alkaline Phosphatase Total Protein Albumin Triglycerides Cholesterol LDL Cholesterol Direct VLDL Cholesterol HDL Cholesterol TSH Urine Color SARI Urine Appearance CLEAR Urine pH 7.0 Ur Specific [place] 1.004 Urine Protein NEGATIVE Urine Glucose (UA) NEGATIVE Urine Ketones NEGATIVE Urine Blood NEGATIVE Urine Nitrite POSITIVE H Ur Leukocyte Esterase NEGATIVE Urine WBC (Auto) 0 Urine RBC (Auto) 0 Urine Osmolality 178 L 02/08/18 02/08/18 02/08/18 14:40 14:40 14:40 WBC 9.6 RBC 4.52 Hgb 9.2 L Hct 29.6 L MCV 66 L MCH 20.3 L MCHC 31.0 L RDW 18.7 H Plt Count 365 Seg Neutrophils % 77.1 Lymphocytes % 15.0 Monocytes % 6.2 Eosinophils % 1.0 Basophils % 0.7 Absolute Neutrophils 7.4 Absolute Lymphocytes 1.4 Absolute Monocytes 0.6 Absolute Eosinophils 0.1 Absolute Basophils 0.1 Sodium Potassium Chloride Carbon Dioxide Anion Gap BUN Creatinine Est GFR ( Amer) Est GFR (Non-Af Amer) Glucose Serum Osmolality 251 L Uric Acid 1.6 L Calcium Magnesium Total Bilirubin AST ALT Alkaline Phosphatase Total Protein Albumin Triglycerides Cholesterol LDL Cholesterol Direct VLDL Cholesterol HDL Cholesterol TSH Urine Color Urine Appearance Urine pH Ur Specific [place] Urine Protein Urine Glucose (UA) Urine Ketones Urine Blood Urine Nitrite Ur Leukocyte Esterase Urine WBC (Auto) Urine RBC (Auto) Urine Osmolality 02/08/18 02/09/18 02/09/18 17:59 04:30 04:30 WBC 7.1 RBC 4.43 Hgb 9.0 L Hct 29.0 L MCV 66 L MCH 20.3 L MCHC 31.0 L RDW 18.9 H Plt Count 307 Seg Neutrophils % 59.0 Lymphocytes % 28.3 Monocytes % 9.0 Eosinophils % 2.6 Basophils % 1.1 Absolute Neutrophils 4.2 Absolute Lymphocytes 2.0 Absolute Monocytes 0.6 Absolute Eosinophils 0.2 Absolute Basophils 0.1 Sodium 123.6 L 125.3 L Potassium 4.3 3.8 Chloride 88 L 89 L Carbon Dioxide 25 27 Anion Gap 11 9 BUN 6 L 11 Creatinine 0.74 0.84 Est GFR ( Amer) > 60 > 60 Est GFR (Non-Af Amer) > 60 > 60 Glucose 123 H 105 Serum Osmolality Uric Acid Calcium 10.0 9.4 Magnesium 1.8 Total Bilirubin 0.6 0.5 AST 23 19 ALT 18 17 Alkaline Phosphatase 88 72 Total Protein 7.5 6.1 L Albumin 4.5 3.7 Triglycerides 83 Cholesterol 165.43 LDL Cholesterol Direct 90 VLDL Cholesterol 17.0 HDL Cholesterol 59 TSH Urine Color Urine Appearance Urine pH Ur Specific [place] Urine Protein Urine Glucose (UA) Urine Ketones Urine Blood Urine Nitrite Ur Leukocyte Esterase Urine WBC (Auto) Urine RBC (Auto) Urine Osmolality 02/09/18 04:30 WBC RBC Hgb Hct MCV MCH MCHC RDW Plt Count Seg Neutrophils % Lymphocytes % Monocytes % Eosinophils % Basophils % Absolute Neutrophils Absolute Lymphocytes Absolute Monocytes Absolute Eosinophils Absolute Basophils Sodium Potassium Chloride Carbon Dioxide Anion Gap BUN Creatinine Est GFR ( Amer) Est GFR (Non-Af Amer) Glucose Serum Osmolality Uric Acid Calcium Magnesium Total Bilirubin AST ALT Alkaline Phosphatase Total Protein Albumin Triglycerides Cholesterol LDL Cholesterol Direct VLDL Cholesterol HDL Cholesterol TSH 1.56 Urine Color Urine Appearance Urine pH Ur Specific [place] Urine Protein Urine Glucose (UA) Urine Ketones Urine Blood Urine Nitrite Ur Leukocyte Esterase Urine WBC (Auto) Urine RBC (Auto) Urine Osmolality 02/08/18 02/08/18 02/08/18 14:40 14:40 22:24 Creatine Kinase 48 48 Troponin I < 0.012 NT-Pro-B Natriuret Pep 02/08/18 02/09/18 02/09/18 22:24 04:30 04:30 Creatine Kinase 37 Troponin I < 0.012 < 0.012 NT-Pro-B Natriuret Pep 1070 H Assessment & Plan - Diagnosis (1) Hyponatremia Is this a current diagnosis for this admission?: Yes Plan: 02/08/2018-plan is to place the patient in [facility]. Nephrology consult was requested. Waiting for the urine osmolality and urine sodium levels. Requested for uric acid levels. Hyponatremia may be secondary to pain, nausea, antid epressant medications, polydipsia. Her pain I started her on Dilaudid 1 mg IV every 6 as needed. For nausea start her on Zofran 4 mg IV every 4 as needed. I am going to put her on fluid restriction 2 L/day. Given Lasix 40 mg IV 1 dose. Daily withheld antidepressants until the medication were reviewed by the tobacco sample puller. Cortisol level was requested TSH level was requested. Neurochecks were requested. Patient fall seizure precautions were requested. strict Input and output chart was requested. 02/09/2018-patient was admitted to [facility] for hyponatremia. Admission sodium is 123. Improved to 125. Patient is asymptomatic since the admission. Probably hyponatremia is chronic. He was given Lasix 40 mg IV 1 dose, fluid restriction was placed 1.5 L/day. And also started on sodium tablet 3000 mg p.o. twice daily. Check input and output chest was requested. Serum osmolality at the time of admission is 251 and a urine osmolality is 175 suggesting may be polydipsia. I am going to repeat the serum osmolality urine osmolality today and repeat the sodium this evening. For the labs for tomorrow also. We are going to get in touch with Dr. Evans office to see if he is able to see the patient today. Neurochecks are negative so far. Patient psychiatric medications are on hold. Am going to put a consult for psych. CT chest without contrast was requested to rule out any malignancy. TSH is normal 1.56, cortisol level is 6.62. (2) UTI (urinary tract infection) Qualifiers: Urinary tract infection type: acute cystitis Hematuria presence: without hematuria Qualified Code(s): N30.00 - Acute cystitis without hematuria Is this a current diagnosis for this admission?: Yes Plan: 02/08/2018-patient has history of recurrent UTI not responding to outpatient antibiotic therapy with Keflex and Cipro. Started on nitrofurantoin 100 mg p.o. twice daily. Urine cultures and blood cultures were requested. 02/09/2018-patient has a history of a recurrent UTI. Urine cultures are pending. Patient was placed on nitrofurantoin. Blood cultures are also pending. (3) Hypertension Is this a current diagnosis for this admission?: Yes Plan: Patient's latest blood pressure is 172/100. Denies any history of high blood pressure. High blood pressure may be secondary to pain and may be also due to increased fluid intake. I gave her Lasix 40 mg IV 1 dose. Patient is not in fluid overload. But also the same time she is not hypovolemic. 02/09/2018 patient's blood pressure is 172/100 yesterday. May be secondary to pain. Blood pressure today is 108/54. She is not on any antihypertensives. (4) Bipolar 1 disorder Is this a current diagnosis for this admission?: Yes Plan: 02/08/2018-patient now Lamictal, trazodone, Latuda at home. I am going to hold those medications in the setting of hyponatremia. Started her on Ativan 1 mg IV every 6 as needed for anxiety and agitation. 02/09/2018-patient has history of bipolar disorder with depression patient is on Lamictal trazodone Latuda at home. Because of the hyponatremia those medications are on hold. Plan is to request for psych consult. (5) Coronary artery disease Is this a current diagnosis for this admission?: Yes Plan: 02/08/2018-patient is given the history of coronary artery disease with blocked arteries she denies she had any stent placements. Denies any chest pains at this time. 02/09/2018 patient is given the history of coronary artery disease. According to her she has blocked arteries never had any stent placements. No complaints of chest pain during the hospital stay. - Time Time Spent with patient: 15-24 minutes Medications reviewed and adjusted accordingly: Yes Anticipated discharge: Home
[2018-02-09] MEDS ORDERED: ZOLPIDEM TARTRATE 5 MG TABLET PO SCH (10:00)
[2018-02-09] MEDS: SODIUM BICARBONATE 650 MG TABLET PO SCH ×2 (10:34→21:59)
[2018-02-09] MEDS: NITROFURANTOIN MONOHYD/M-CRYST 100 MG CAPSULE PO SCH ×2 (10:34→17:44)
[2018-02-09] MEDS: FAMOTIDINE 20 MG TABLET PO SCH ×2 (10:34→21:59)
[2018-02-09] MEDS: DOCUSATE SODIUM 100 MG CAPSULE PO SCH ×2 (10:34→17:44)
[2018-02-09] MEDS: ENOXAPARIN SODIUM INJ 40 MG/0.4 ML DISP.SYRIN SUBCUT SCH (10:34)
--- NOTE | 2018-02-09 10:34 | RADIOLOGY REPORT (SQ) ---
EXAM DESCRIPTION: CT CHEST WITHOUT COMPLETED DATE/TIME: 02/09/2018 10:05 am REASON FOR STUDY: r/o maligency COMPARISON: None. TECHNIQUE: CT scan performed of the chest without intravenous contrast. Images reviewed with lung, soft tissue and bone windows. Reconstructed coronal and sagittal MPR images reviewed. All images st ored on PACS. All CT scanners at this facility use dose modulation, iterative reconstruction, and/or weight based d osing when appropriate to reduce radiation dose to as low as reasonably achievable (ALARA). [facility]: Dose Right [facility]: CareDose [facility]: Dose Right [facility]: Teradose 4D [facility]: Plazes RADIATION DOSE: CT Rad equipment meets quality standard of care and radiation dose reduction techniq ues were employed. CTDIvol: 4.1 mGy. DLP: 148 mGy-cm. mGy. LIMITATIONS: No technical limitations. FINDINGS: LUNGS AND PLEURA: No masses, infiltrates, or pneumothorax. Scattered parenchymal scarring . No pleural effusions or pleural calcifications. HILAR AND MEDIASTINAL STRUCTURES: No identified masses or abnormal nodes. No obvious aneurysm. HEART AND VASCULAR STRUCTURES: No aneurysm. No pericardial effusion. UPPER ABDOMEN: No significant findings. Limited exam. THYROID AND OTHER SOFT TISSUES: No masses. No adenopathy. BONES: No significant finding. Degenerative changes in the spine. HARDWARE: None in the chest. There is tubing in the lumen of the stomach. Surgical clips adjacent t o the stomach and in the region of the gastroesophageal junction. OTHER: No other significant findings. IMPRESSION: 1. SCATTERED PARENCHYMAL SCARRING IN THE LUNGS. NO OTHER SIGNIFICANT FINDING ON NON-CONTRASTED CHEST CT. 2. SURGICAL CLIPS ADJACENT TO THE STOMACH AND GASTROESOPHAGEAL JUNCTION. THERE IS TUBING CONTAINED W ITHIN THE LUMEN OF THE STOMACH. UNCLEAR TO THE NATURE OF THIS TUBING. RECOMMEND CORRELATION WITH ANY PRIOR PROCEDURES. TECHNICAL DOCUMENTATION: JOB ID: [id number] Quality ID # [id number]: Final reports with documentation of one or more dose reduction techniques (e.g., Au tomated exposure control, adjustment of the mA and/or kV according to patient size, use of iterative reconstruction technique) 2010 [employer]- All Rights Reserved Reading location - IP/workstation name: [facility]
--- NOTE | 2018-02-09 13:24 | PDOC CONSULTATION ---
Consultation Consult Date: 02/09/18 Attending physician:: GAVI VALDEZ Consult reason:: I was asked to see the patient due to hyponatremia. History of Present Illness Admission Date/PCP: 02/08/18 16:01 CONSTANZA DOYLE MD History of Present Illness: STEPHANIE KOHLI is a 67 year old female with history of coronary artery disease, bipolar disorder and depression who was admitted yesterday because of suprapubic pain and hyponatremia. Patient said that she has been having suprapubic pain for the last 3-4 weeks and has been treated with antibiotics including ciprofloxacin and Keflex but continues to have the suprapubic pain so she decided to go to the emergency room. She did say that she has history of this recurrent UTI in the past and she has seen a urologist years ago. On admission she was also found to have hyponatremia with sodium of 123.4. Workup for hyponatremia including serum osmolality of 251, urine osmolality of 175, normal TSH and normal cortisol level with slightly low uric acid level at 1.6. Patient is been taking antidepressant medications. She also admits some nausea and vomiting on and off for the last 10 days but not excessively. She denies any diarrhea. She admits drinking a lot of water thinking that it will flush up her bladder because of possible urinary tract infection. She reports drinking about 6 bottles of 16 ounces of water approximately 3 L a day for the last 10 days. She denies any previous problem of hyponatremia in the past. She said she has been feeling dizzy when she walks on the steps but it comes on and off and has been unchanged since she had a stroke 5 years ago. She denies feeling unsteady when she walks recently, denies any confusion or disorientation, denies any tremors no weakness. She denies any fever and chills. The CT scan of the chest showed scattered parenchymal changes but no evidence of malignancy. She denies any chest pains no shortness of breath. Apparently she was given some Dilaudid for pain but that did not work so she is currently on Percocet. Her urine culture so far has been negative. She was given a dose of 40 mg Lasix x1 yesterday. She is also being given sodium tablets about 3000 mg twice a day. Past Medical History Cardiac Medical History: Reports: Coronary Artery Disease, Myocardial Infarction Neurological Medical History: Reports: Ischemic CVA, Migraine Psychiatric Medical History: Reports: Bipolar Disorder, Depression Past Surgical History Past Surgical History: Reports: Cardiac Catheterization, Orthopedic Surgery - Back surgery 2, foot surgery Social History Information Source: Patient Lives with: Other - Her roommate Smoking Status: Never Smoker Frequency of Alcohol Use: Occasional Hx Recreational Drug Use: No Drugs: None Hx Prescription Drug Abuse: No - Advance Directive Resuscitation Status: Do Not Resuscitate Family History Family History: CAD - Maternal grandfather, Malignancy - Breast cancer with her mother and colon cancer with her father, Other - COPD and her brother Parental Family History Reviewed: Yes Children Family History Reviewed: Yes Sibling(s) Family History Reviewed.: Yes Medication/Allergy Home Medications: Diazepam 1 tab PO Q8HP PRN 02/08/18 Lamotrigine 200 mg PO DAILY 02/08/18 Phenazopyridine HCl [Pyridium] 100 mg PO Q8H 02/08/18 Trazodone HCl [Desyrel] 300 mg PO HSP PRN 02/08/18 Zolpidem Tartrate [Ambien] 10 mg PO DAILY 02/08/18 Lurasidone HCl [Latuda 40 mg Tablet] 40 mg PO QAM 02/09/18 Methocarbamol [Robaxin-750] 750 mg PO Q8HP PRN 02/09/18 Multivitamin [Tab-A-Trinh (Multiple Vitamin) Tablet] 1 tab PO DAILY 02/09/18 Sertraline HCl [Zoloft] 100 mg PO DAILY 02/09/18 Allergies/Adverse Reactions: amoxicillin Allergy (Verified 02/08/18 13:41) Review of Systems All systems: reviewed and no additional remarkable complaints except as stated Review of Systems: Constitutional: ABSENT: chills, fatigue, fever(s), headache(s), weight gain, weight loss Eyes: ABSENT: visual disturbances Ears: ABSENT: hearing changes Cardiovascular: ABSENT: chest pain, dyspnea on exertion, edema, orthropnea, palpitations Respiratory: ABSENT: cough, dyspnea, hemoptysis Gastrointestinal: ABSENT: Constipation, diarrhea, hematemesis, hematochezia; admits to occasional nausea, and vomiting Genitourinary: ABSENT: Hematuria; admits dysuria and suprapubic pain Musculoskeletal: ABSENT: joint swelling Integumentary: ABSENT: rash, wounds Neurological: ABSENT: abnormal gait, abnormal speech, confusion, dizziness, focal weakness, numbness, syncope Psychiatric: ABSENT: anxiety, depression Endocrine: ABSENT: cold intolerance, heat intolerance, polydipsia, polyuria Hematologic/Lymphatic: ABSENT: easy bleeding, easy bruising, lymphadenopathy Physical Exam Vital Signs: Temp Pulse Resp BP Pulse Ox 97.8 F 75 16 108/54 L 95 02/09/18 07:10 02/09/18 07:10 02/09/18 07:10 02/09/18 07:10 02/09/18 07:10 Intake & Output 02/08/18 02/09/18 02/10/18 06:59 06:59 06:59 Intake Total 236 450 Output Total 1500 600 Balance -1264 -150 Weight 59.5 kg Exam: General appearance: No acute distress, cooperative, well-developed, well- nourished Head exam: PRESENT: atraumatic, normocephalic Eye exam: PRESENT: Conjunctiva slightly pale, EOMI, PERRLA. ABSENT: conjunctival injection, scleral icterus Mouth exam: PRESENT: moist, neck supple, tongue midline Neck exam: PRESENT: full ROM. ABSENT: carotid bruit, JVD, lymphadenopathy, thyromegaly Respiratory exam: PRESENT: clear to auscultation bilaterally. ABSENT: rales, rhonchi, stridor, wheezes Cardiovascular exam: PRESENT: RRR, +S1, +S2. ABSENT: systolic murmur Pulses: PRESENT: normal radial pulses, normal dorsalis pedis pulses GI/Abdominal exam: PRESENT: normal bowel sounds, soft. Positive significant suprapubic tenderness ABSENT: guarding, mass Rectal exam: Deferred Extremities exam: PRESENT: full ROM. ABSENT: calf tenderness, pedal edema Musculoskeletal: PRESENT: full ROM. ABSENT: deformity Neurological exam: PRESENT: alert, Awake, Oriented to person, Oriented to place, Oriented to time, reflexes normal, CN II-XII grossly intact. ABSENT: motor sensory deficit Psychiatric exam: PRESENT: appropriate affect, normal mood. ABSENT: homicidal ideation, suicidal ideation Skin exam: PRESENT: intact, dry, warm. ABSENT: rash Results Laboratory Results: 02/09/18 04:30 02/09/18 04:30 02/08/18 02/08/18 02/08/18 14:00 14:00 14:40 WBC RBC Hgb Hct MCV MCH MCHC RDW Plt Count Seg Neutrophils % Lymphocytes % Monocytes % Eosinophils % Basophils % Absolute Neutrophils Absolute Lymphocytes Absolute Monocytes Absolute Eosinophils Absolute Basophils Sodium 123.4 L Potassium 4.4 Chloride 88 L Carbon Dioxide 24 Anion Gap 11 BUN 6 L Creatinine 0.70 Est GFR ( Amer) > 60 Est GFR (Non-Af Amer) > 60 Glucose 102 Serum Osmolality Uric Acid Calcium 9.8 Magnesium Total Bilirubin AST ALT Alkaline Phosphatase Total Protein Albumin Triglycerides Cholesterol LDL Cholesterol Direct VLDL Cholesterol HDL Cholesterol TSH Urine Color SARI Urine Appearance CLEAR Urine pH 7.0 Ur Specific [place] 1.004 Urine Protein NEGATIVE Urine Glucose (UA) NEGATIVE Urine Ketones NEGATIVE Urine Blood NEGATIVE Urine Nitrite POSITIVE H Ur Leukocyte Esterase NEGATIVE Urine WBC (Auto) 0 Urine RBC (Auto) 0 Urine Osmolality 178 L 02/08/18 02/08/18 02/08/18 14:40 14:40 14:40 WBC 9.6 RBC 4.52 Hgb 9.2 L Hct 29.6 L MCV 66 L MCH 20.3 L MCHC 31.0 L RDW 18.7 H Plt Count 365 Seg Neutrophils % 77.1 Lymphocytes % 15.0 Monocytes % 6.2 Eosinophils % 1.0 Basophils % 0.7 Absolute Neutrophils 7.4 Absolute Lymphocytes 1.4 Absolute Monocytes 0.6 Absolute Eosinophils 0.1 Absolute Basophils 0.1 Sodium Potassium Chloride Carbon Dioxide Anion Gap BUN Creatinine Est GFR ( Amer) Est GFR (Non-Af Amer) Glucose Serum Osmolality 251 L Uric Acid 1.6 L Calcium Magnesium Total Bilirubin AST ALT Alkaline Phosphatase Total Protein Albumin Triglycerides Cholesterol LDL Cholesterol Direct VLDL Cholesterol HDL Cholesterol TSH Urine Color Urine Appearance Urine pH Ur Specific [place] Urine Protein Urine Glucose (UA) Urine Ketones Urine Blood Urine Nitrite Ur Leukocyte Esterase Urine WBC (Auto) Urine RBC (Auto) Urine Osmolality 02/08/18 02/09/18 02/09/18 17:59 04:30 04:30 WBC 7.1 RBC 4.43 Hgb 9.0 L Hct 29.0 L MCV 66 L MCH 20.3 L MCHC 31.0 L RDW 18.9 H Plt Count 307 Seg Neutrophils % 59.0 Lymphocytes % 28.3 Monocytes % 9.0 Eosinophils % 2.6 Basophils % 1.1 Absolute Neutrophils 4.2 Absolute Lymphocytes 2.0 Absolute Monocytes 0.6 Absolute Eosinophils 0.2 Absolute Basophils 0.1 Sodium 123.6 L 125.3 L Potassium 4.3 3.8 Chloride 88 L 89 L Carbon Dioxide 25 27 Anion Gap 11 9 BUN 6 L 11 Creatinine 0.74 0.84 Est GFR ( Amer) > 60 > 60 Est GFR (Non-Af Amer) > 60 > 60 Glucose 123 H 105 Serum Osmolality Uric Acid Calcium 10.0 9.4 Magnesium 1.8 Total Bilirubin 0.6 0.5 AST 23 19 ALT 18 17 Alkaline Phosphatase 88 72 Total Protein 7.5 6.1 L Albumin 4.5 3.7 Triglycerides 83 Cholesterol 165.43 LDL Cholesterol Direct 90 VLDL Cholesterol 17.0 HDL Cholesterol 59 TSH Urine Color Urine Appearance Urine pH Ur Specific [place] Urine Protein Urine Glucose (UA) Urine Ketones Urine Blood Urine Nitrite Ur Leukocyte Esterase Urine WBC (Auto) Urine RBC (Auto) Urine Osmolality 02/09/18 02/09/18 04:30 04:30 WBC RBC Hgb Hct MCV MCH MCHC RDW Plt Count Seg Neutrophils % Lymphocytes % Monocytes % Eosinophils % Basophils % Absolute Neutrophils Absolute Lymphocytes Absolute Monocytes Absolute Eosinophils Absolute Basophils Sodium Potassium Chloride Carbon Dioxide Anion Gap BUN Creatinine Est GFR ( Amer) Est GFR (Non-Af Amer) Glucose Serum Osmolality 258 L Uric Acid Calcium Magnesium Total Bilirubin AST ALT Alkaline Phosphatase Total Protein Albumin Triglycerides Cholesterol LDL Cholesterol Direct VLDL Cholesterol HDL Cholesterol TSH 1.56 Urine Color Urine Appearance Urine pH Ur Specific [place] Urine Protein Urine Glucose (UA) Urine Ketones Urine Blood Urine Nitrite Ur Leukocyte Esterase Urine WBC (Auto) Urine RBC (Auto) Urine Osmolality 02/08/18 02/08/18 02/08/18 14:40 14:40 22:24 Creatine Kinase 48 48 Troponin I < 0.012 NT-Pro-B Natriuret Pep 02/08/18 02/09/18 02/09/18 22:24 04:30 04:30 Creatine Kinase 37 Troponin I < 0.012 < 0.012 NT-Pro-B Natriuret Pep 1070 H Impressions: Chest CT 02/09/18 00:00 IMPRESSION: 1. SCATTERED PARENCHYMAL SCARRING IN THE LUNGS. NO OTHER SIGNIFICANT FINDING ON NON-CONTRASTED CHEST CT. 2. SURGICAL CLIPS ADJACENT TO THE STOMACH AND GASTROESOPHAGEAL JUNCTION. THERE IS TUBING CONTAINED WITHIN THE LUMEN OF THE STOMACH. UNCLEAR TO THE NATURE OF THIS TUBING. RECOMMEND CORRELATION WITH ANY PRIOR PROCEDURES. Assessment & Plan - Diagnosis (1) Hyponatremia Is this a current diagnosis for this admission?: Yes Plan: Patient is euvolemic and workup so far is negative except for urine osmolality which is slightly lower than the serum osmolality. Differential diagnosis include psychogenic polydipsia versus SIADH. Trazodone can induce hyponatremia. Other contributory factors include intermittent nausea and ongoing pain. Continue fluid restriction at this point, ideally fluid restriction should be 1 L or less but since the patient has history of drinking a lot of water think 1.5 L fluid restriction is okay for now. Repeat BMP and sodium level at 4 PM today as ordered. We will consider giving the patient tolvaptan if sodium is not significantly improved. I will not recommend any diuretics at this point. I will discontinue trazodone for now. (2) Suprapubic abdominal pain Is this a current diagnosis for this admission?: Yes Plan: Patient has history of presumably recurrent urinary tract infection but current urine culture is negative. This would mean that either she does not really have acute infection and instead to have chronic interstitial cystitis without any infection. Discussed this diagnosis with the patient and the possibility of seeing a urologist upon discharge. We will get the kidney with bladder ultrasound. (4) Bipolar 1 disorder Is this a current diagnosis for this admission?: Yes (5) Hypertension Is this a current diagnosis for this admission?: Yes Plan: Improved and controlled. - Notes Notes: Thank you very much for this consultation. We will follow patient with you. - Time Time Spent: 50 to 70 Minutes
--- NOTE | 2018-02-09 16:17 | RADIOLOGY REPORT (SQ) ---
EXAM DESCRIPTION: U/S RETROPERITON (RENAL/AORTA) COMPLETED DATE/TIME: 02/09/2018 4:00 pm REASON FOR STUDY: R/O Chronic Interstitial Cystitis, Recurrent UTI COMPARISON: None. TECHNIQUE: Dynamic and static grayscale images acquired of the kidneys and bladder and recorded on P ACS. Additional selected color Doppler and spectral images recorded. LIMITATIONS: None. FINDINGS: RIGHT KIDNEY: 7.8 cm. Normal echogenicity. No solid or suspicious masses. No hydronephrosi s. No calcifications. LEFT KIDNEY: 8.8 cm. Normal echogenicity. No solid or suspicious masses. No hydronephrosis. No calci fications. BLADDER: No masses. Ramos catheter in the bladder. Bladder volume 128.5 mL. Debris present within the lumen. OTHER FINDINGS: No other significant finding. IMPRESSION: 1. RELATIVELY SMALL KIDNEYS. NO EVIDENCE OF HYDRONEPHROSIS. NO FOCAL LESIONS. 2. BLADDER FINDINGS ABOVE. CATHETER IN THE BLADDER. DEBRIS PRESENT WITHIN THE BLADDER. TECHNICAL DOCUMENTATION: JOB ID: [id number] [employer]- All Rights Reserved Reading location - IP/workstation name: [facility]
[2018-02-09 16:35] LABS: ALANINE AMINOTRANSFERASE 14 U/L (9-52); ALKALINE PHOSPHATASE 76 U/L (38-126); ANION GAP 9 (5-19); ASPARTATE AMINO TRANSFERASE 26 U/L (14-36); BILIRUBIN,TOTAL 0.6 mg/dL (0.2-1.3); BLOOD UREA NITROGEN 13 mg/dL (7-20); CALCIUM 9.9 mg/dL (8.4-10.2); CARBON DIOXIDE 27 mmol/L (22-30); CHLORIDE 89 mmol/L (98-107); GLUCOSE 113 mg/dL (75-110); POTASSIUM 4.5 mmol/L (3.6-5.0); SODIUM 125.3 mmol/L (137-145); TOTAL PROTEIN 6.9 g/dL (6.3-8.2)
[2018-02-09] MEDS ORDERED: TOLVAPTAN 15 MG TABLET PO ONE (19:00)
[2018-02-09] MEDS: ZOLPIDEM TARTRATE 5 MG TABLET PO SCH (22:47)
[2018-02-10 05:06] LABS: ABSOLUTE BASOPHILS # (AUTO) 0.1 10^3/uL (0.0-0.2); ABSOLUTE EOSINOPHILS # (AUTO) 0.2 10^3/uL (0.0-0.6); ABSOLUTE MONOCYTES (AUTO) 0.6 10^3/uL (0.1-1.4); ABSOLUTE NEUT (AUTO) 4.2 10^3/uL (1.7-8.2); BASOPHILS % (AUTO) 0.9 % (0-2); EOSINOPHILS % (AUTO) 2.2 % (0-6); HEMATOCRIT 28.3 % (36.0-47.0); LYMPHOCYTES % (AUTO) 28.8 % (13-45); MEAN CORPUSCULAR HEMOGLOBIN 20.6 pg (27.0-33.4); MEAN CORPUSCULAR HGB CONC 31.7 g/dL (32.0-36.0); MEAN CORPUSCULAR VOLUME 65 fl (80-97); MONOCYTES % (AUTO) 8.1 % (3-13); PLATELET COUNT 280 10^3/uL (150-450); RED BLOOD COUNT 4.35 10^6/uL (3.72-5.28); RED CELL DISTRIBUTION WIDTH 18.9 % (11.5-14.0); TOTAL CELLS COUNTED % (AUTO) 100 %
[2018-02-10] MEDS: PHENAZOPYRIDINE HCL 100 MG TABLET PO SCH ×3 (06:45→21:38)
[2018-02-10] MEDS: OXYCODONE-ACETAMINOPHEN 5-325 MG TABLET PO PRN ×3 (06:48→21:37)
[2018-02-10] MEDS: SODIUM BICARBONATE 650 MG TABLET PO SCH ×2 (09:29→21:38)
[2018-02-10] MEDS: NITROFURANTOIN MONOHYD/M-CRYST 100 MG CAPSULE PO SCH ×2 (09:29→17:27)
[2018-02-10] MEDS: DOCUSATE SODIUM 100 MG CAPSULE PO SCH ×2 (09:29→17:27)
[2018-02-10] MEDS: FAMOTIDINE 20 MG TABLET PO SCH ×2 (09:29→21:38)
[2018-02-10 09:59] LABS: ANION GAP 9 (5-19); BLOOD UREA NITROGEN 15 mg/dL (7-20); CALCIUM 9.8 mg/dL (8.4-10.2); CARBON DIOXIDE 27 mmol/L (22-30); CHLORIDE 93 mmol/L (98-107); GLUCOSE 99 mg/dL (75-110); POTASSIUM 4.5 mmol/L (3.6-5.0)
[2018-02-10] MEDS: ENOXAPARIN SODIUM INJ 40 MG/0.4 ML DISP.SYRIN SUBCUT SCH (10:13)
--- NOTE | 2018-02-10 14:39 | PDOC PROGRESS REPORT ---
Subjective Progress Note for:: 02/10/18 Subjective:: This is a 67 year old female with history of recurrent UTI, bladder diverticula, chronic back pain with back surgeries and neck surgeries, anxiety, bipolar disorder and depression, came to the emergency room with complaints of suprapubic pain for 2 weeks. According to her she went to PCP twice initially she was started on Keflex then she is on Cipro still she is having suprapubic pain. Further work-up in the ER shows significant hyponatremia with a sodium of 123. Patient was evaluated by nephrology as well who recommended fluid restriction. No acute event overnight. She is not having symptoms from the hyponatremia. She denies dizziness, headache, nausea or vomiting. She does continue to complain of hypogastric discomfort. She also says she has chronic back pain and had acute lumbar pain this morning which has already resolved. Her sodium continues to significantly improve with fluid restriction. She was also started on sodium bicarb tablets. Reason For Visit: HYPONATREMIA Physical Exam Vital Signs: Temp Pulse Resp BP Pulse Ox 99.2 F 80 16 108/57 L 94 02/10/18 11:36 02/10/18 11:36 02/10/18 11:36 02/10/18 11:36 02/10/18 11:36 Intake & Output 02/09/18 02/10/18 02/11/18 06:59 06:59 06:59 Intake Total 236 772 100 Output Total 1500 1975 500 Balance -1264 -1203 -400 Weight 131 lb 2.801 oz 131 lb 6.328 oz General appearance: PRESENT: no acute distress, well-developed, well-nourished Head exam: PRESENT: atraumatic, normocephalic Eye exam: PRESENT: conjunctiva pink, EOMI, PERRLA. ABSENT: scleral icterus Ear exam: PRESENT: normal external ear exam Neck exam: ABSENT: carotid bruit, JVD, lymphadenopathy, thyromegaly Respiratory exam: PRESENT: clear to auscultation norman. ABSENT: rales, rhonchi, wheezes Cardiovascular exam: PRESENT: RRR. ABSENT: diastolic murmur, rubs, systolic murmur Vascular exam: PRESENT: normal capillary refill GI/Abdominal exam: PRESENT: normal bowel sounds, soft. ABSENT: distended, guarding, mass, organolmegaly, rebound, tenderness Rectal exam: PRESENT: deferred Neurological exam: PRESENT: alert, awake, oriented to person, oriented to place, oriented to time, oriented to situation, CN II-XII grossly intact. ABSENT: motor sensory deficit Results Laboratory Results: 02/10/18 04:23 02/10/18 04:23 02/09/18 02/09/18 02/10/18 14:00 16:00 04:23 WBC 7.0 RBC 4.35 Hgb 9.0 L Hct 28.3 L MCV 65 L MCH 20.6 L MCHC 31.7 L RDW 18.9 H Plt Count 280 Seg Neutrophils % 60.0 Lymphocytes % 28.8 Monocytes % 8.1 Eosinophils % 2.2 Basophils % 0.9 Absolute Neutrophils 4.2 Absolute Lymphocytes 2.0 Absolute Monocytes 0.6 Absolute Eosinophils 0.2 Absolute Basophils 0.1 Sodium 125.3 L Potassium 4.5 Chloride 89 L Carbon Dioxide 27 Anion Gap 9 BUN 13 Creatinine 0.81 Est GFR ( Amer) > 60 Est GFR (Non-Af Amer) > 60 Glucose 113 H Calcium 9.9 Magnesium Total Bilirubin 0.6 AST 26 ALT 14 Alkaline Phosphatase 76 Total Protein 6.9 Albumin 4.0 Urine Osmolality 109 L 02/10/18 02/10/18 04:23 04:23 WBC RBC Hgb Hct MCV MCH MCHC RDW Plt Count Seg Neutrophils % Lymphocytes % Monocytes % Eosinophils % Basophils % Absolute Neutrophils Absolute Lymphocytes Absolute Monocytes Absolute Eosinophils Absolute Basophils Sodium 129.0 L Potassium 4.5 Chloride 93 L Carbon Dioxide 27 Anion Gap 9 BUN 15 Creatinine 0.86 Est GFR ( Amer) > 60 Est GFR (Non-Af Amer) > 60 Glucose 99 Calcium 9.8 Magnesium 2.1 Total Bilirubin AST ALT Alkaline Phosphatase Total Protein Albumin Urine Osmolality 02/08/18 14:00 Clean Catch Midstream Urine Culture - Final NO GROWTH 2 DAYS 02/08/18 02/08/18 02/08/18 14:40 14:40 22:24 Creatine Kinase 48 48 Troponin I < 0.012 NT-Pro-B Natriuret Pep 02/08/18 02/09/18 02/09/18 22:24 04:30 04:30 Creatine Kinase 37 Troponin I < 0.012 < 0.012 NT-Pro-B Natriuret Pep 1070 H Impressions: Chest CT 02/09/18 00:00 IMPRESSION: 1. SCATTERED PARENCHYMAL SCARRING IN THE LUNGS. NO OTHER SIGNIFICANT FINDING ON NON-CONTRASTED CHEST CT. 2. SURGICAL CLIPS ADJACENT TO THE STOMACH AND GASTROESOPHAGEAL JUNCTION. THERE IS TUBING CONTAINED WITHIN THE LUMEN OF THE STOMACH. UNCLEAR TO THE NATURE OF THIS TUBING. RECOMMEND CORRELATION WITH ANY PRIOR PROCEDURES. Renal Ultrasound 02/09/18 13:01 IMPRESSION: 1. RELATIVELY SMALL KIDNEYS. NO EVIDENCE OF HYDRONEPHROSIS. NO FOCAL LESIONS. 2. BLADDER FINDINGS ABOVE. CATHETER IN THE BLADDER. DEBRIS PRESENT WITHIN THE BLADDER. Assessment & Plan - Diagnosis (1) Hyponatremia Is this a current diagnosis for this admission?: Yes Plan: Patient appears euvolemic. She has hypotonic hyponatremia. Sodium was initially 123. She has responded well to fluid restriction alone and sodium continues to improve. Sodium trended up to 129 today. Nephrology following. Differentials include primary polydipsia vs SIADH. Her psychotropics were also held on admission as they may be contributing to her hyponatremia. (2) Bipolar 1 disorder Is this a current diagnosis for this admission?: Yes Plan: Await further psych recommendations. - Time Time Spent with patient: 15-24 minutes
--- NOTE | 2018-02-10 15:32 | PDOC PROGRESS REPORT ---
Subjective Progress Note for:: 02/10/18 Subjective:: Patient is doing fine she responded to tolvaptan yesterday with aquaresis and increase urine volume. She is doing well except for persistent suprapubic pain. Reason For Visit: HYPONATREMIA Physical Exam Vital Signs: Temp Pulse Resp BP Pulse Ox 99.2 F 80 16 108/57 L 94 02/10/18 11:36 02/10/18 14:00 02/10/18 11:36 02/10/18 11:36 02/10/18 11:36 Intake & Output 02/09/18 02/10/18 02/11/18 06:59 06:59 06:59 Intake Total 236 772 100 Output Total 1500 1975 500 Balance -1264 -1203 -400 Weight 59.5 kg 59.6 kg Exam: General appearance: PRESENT: no acute distress, cooperative, well-developed, well-nourished Head exam: PRESENT: atraumatic, normocephalic Eye exam: PRESENT: conjunctiva pink, PERRLA. ABSENT: scleral icterus Neck exam: ABSENT: JVD Respiratory exam: PRESENT: Normal breath sounds. ABSENT: crackles, rales, rhonchi, unlabored, wheezes Cardiovascular exam: PRESENT: Regular rate rhythm -+S1, +S2. ABSENT: diastolic murmur, systolic murmur GI/Abdominal exam: PRESENT: normal bowel sounds, soft. ABSENT: guarding, mass, tenderness Extremities exam: ABSENT: No edema Neurological exam: PRESENT: alert, awake, oriented to person, place and time. Skin exam: PRESENT: dry, warm, Results Laboratory Results: 02/10/18 04:23 02/10/18 04:23 02/09/18 02/10/18 02/10/18 16:00 04:23 04:23 WBC 7.0 RBC 4.35 Hgb 9.0 L Hct 28.3 L MCV 65 L MCH 20.6 L MCHC 31.7 L RDW 18.9 H Plt Count 280 Seg Neutrophils % 60.0 Lymphocytes % 28.8 Monocytes % 8.1 Eosinophils % 2.2 Basophils % 0.9 Absolute Neutrophils 4.2 Absolute Lymphocytes 2.0 Absolute Monocytes 0.6 Absolute Eosinophils 0.2 Absolute Basophils 0.1 Sodium 125.3 L Potassium 4.5 Chloride 89 L Carbon Dioxide 27 Anion Gap 9 BUN 13 Creatinine 0.81 Est GFR ( Amer) > 60 Est GFR (Non-Af Amer) > 60 Glucose 113 H Calcium 9.9 Magnesium 2.1 Total Bilirubin 0.6 AST 26 ALT 14 Alkaline Phosphatase 76 Total Protein 6.9 Albumin 4.0 02/10/18 04:23 WBC RBC Hgb Hct MCV MCH MCHC RDW Plt Count Seg Neutrophils % Lymphocytes % Monocytes % Eosinophils % Basophils % Absolute Neutrophils Absolute Lymphocytes Absolute Monocytes Absolute Eosinophils Absolute Basophils Sodium 129.0 L Potassium 4.5 Chloride 93 L Carbon Dioxide 27 Anion Gap 9 BUN 15 Creatinine 0.86 Est GFR ( Amer) > 60 Est GFR (Non-Af Amer) > 60 Glucose 99 Calcium 9.8 Magnesium Total Bilirubin AST ALT Alkaline Phosphatase Total Protein Albumin 02/08/18 14:00 Clean Catch Midstream Urine Culture - Final NO GROWTH 2 DAYS 02/08/18 02/08/18 02/08/18 14:40 14:40 22:24 Creatine Kinase 48 48 Troponin I < 0.012 NT-Pro-B Natriuret Pep 02/08/18 02/09/18 02/09/18 22:24 04:30 04:30 Creatine Kinase 37 Troponin I < 0.012 < 0.012 NT-Pro-B Natriuret Pep 1070 H Impressions: Chest CT 02/09/18 00:00 IMPRESSION: 1. SCATTERED PARENCHYMAL SCARRING IN THE LUNGS. NO OTHER SIGNIFICANT FINDING ON NON-CONTRASTED CHEST CT. 2. SURGICAL CLIPS ADJACENT TO THE STOMACH AND GASTROESOPHAGEAL JUNCTION. THERE IS TUBING CONTAINED WITHIN THE LUMEN OF THE STOMACH. UNCLEAR TO THE NATURE OF THIS TUBING. RECOMMEND CORRELATION WITH ANY PRIOR PROCEDURES. Renal Ultrasound 02/09/18 13:01 IMPRESSION: 1. RELATIVELY SMALL KIDNEYS. NO EVIDENCE OF HYDRONEPHROSIS. NO FOCAL LESIONS. 2. BLADDER FINDINGS ABOVE. CATHETER IN THE BLADDER. DEBRIS PRESENT WITHIN THE BLADDER. 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 Patient responded to tolvaptan and fluid restriction. I will give another dose of tolvaptan today. If sodium level continues to improve by tomorrow I think she can be safely discharged home. (2) Suprapubic abdominal pain Is this a current diagnosis for this admission?: Yes Plan: Urine culture remains negative the patient is being given antibiotics. Advised patient to see a urologist and she told me that she will make an appointment with [facility] urology for further management and follow-up for her suprapubic pain and further consideration for chronic interstitial cystitis. Kidney and bladder ultrasound showed debris in the bladder and incidental findings of relatively small kidneys with the right kidney only 7.8 cm and left kidney about 8.8 cm. Currently with acceptable normal kidney function for her age. (3) Anemia Is this a current diagnosis for this admission?: Yes Plan: Stable and unchanged. (4) Bipolar 1 disorder Is this a current diagnosis for this admission?: Yes Plan: Continue to withhold trazodone. (5) Hypertension Is this a current diagnosis for this admission?: Yes Plan: Well-controlled. - Time Time with patient: 15-25 minutes
[2018-02-10] MEDS ORDERED: TOLVAPTAN 15 MG TABLET PO ONE (16:45)
[2018-02-10] MEDS ORDERED: TOLVAPTAN 15 MG TABLET ONE (17:15)
[2018-02-10] MEDS: ZOLPIDEM TARTRATE 5 MG TABLET PO SCH (21:38)
[2018-02-11] MEDS: PHENAZOPYRIDINE HCL 100 MG TABLET PO SCH ×2 (05:51→13:08)
[2018-02-11] MEDS: OXYCODONE-ACETAMINOPHEN 5-325 MG TABLET PO PRN ×2 (05:53→12:05)
[2018-02-11 06:51] LABS: ABSOLUTE BASOPHILS # (AUTO) 0.1 10^3/uL (0.0-0.2); ABSOLUTE EOSINOPHILS # (AUTO) 0.2 10^3/uL (0.0-0.6); ABSOLUTE LYMPHOCYTES (AUTO) 1.6 10^3/uL (0.5-4.7); ABSOLUTE MONOCYTES (AUTO) 0.7 10^3/uL (0.1-1.4); ABSOLUTE NEUT (AUTO) 5.3 10^3/uL (1.7-8.2); BASOPHILS % (AUTO) 0.8 % (0-2); EOSINOPHILS % (AUTO) 2.7 % (0-6); HEMATOCRIT 28.2 % (36.0-47.0); HEMOGLOBIN 8.7 g/dL (12.0-15.5); LYMPHOCYTES % (AUTO) 20.1 % (13-45); MEAN CORPUSCULAR HEMOGLOBIN 20.3 pg (27.0-33.4); MEAN CORPUSCULAR HGB CONC 30.9 g/dL (32.0-36.0); MEAN CORPUSCULAR VOLUME 66 fl (80-97); PLATELET COUNT 327 10^3/uL (150-450); RED CELL DISTRIBUTION WIDTH 19.2 % (11.5-14.0); SEGMENTED NEUTROPHILS % (AUTO) 67.4 % (42-78); TOTAL CELLS COUNTED % (AUTO) 100 %; WHITE BLOOD COUNT 7.9 10^3/uL (4.0-10.5)
[2018-02-11 07:10] LABS: ANION GAP 7 (5-19); BLOOD UREA NITROGEN 14 mg/dL (7-20); CALCIUM 9.5 mg/dL (8.4-10.2); CARBON DIOXIDE 31 mmol/L (22-30); CHLORIDE 96 mmol/L (98-107); GLUCOSE 114 mg/dL (75-110); POTASSIUM 4.1 mmol/L (3.6-5.0); SODIUM 133.5 mmol/L (137-145)
[2018-02-11] MEDS: DOCUSATE SODIUM 100 MG CAPSULE PO SCH ×2 (10:25→17:01)
[2018-02-11] MEDS: FAMOTIDINE 20 MG TABLET PO SCH (10:25)
[2018-02-11] MEDS: NITROFURANTOIN MONOHYD/M-CRYST 100 MG CAPSULE PO SCH ×2 (10:25→17:01)
[2018-02-11] MEDS: SODIUM BICARBONATE 650 MG TABLET PO SCH (10:25)
[2018-02-11] MEDS: ENOXAPARIN SODIUM INJ 40 MG/0.4 ML DISP.SYRIN SUBCUT SCH (10:26)
[2018-02-11 15:20] LABS: ANION GAP 8 (5-19); BLOOD UREA NITROGEN 12 mg/dL (7-20); CALCIUM 9.5 mg/dL (8.4-10.2); CARBON DIOXIDE 31 mmol/L (22-30); CHLORIDE 94 mmol/L (98-107); GLUCOSE 109 mg/dL (75-110)
[2018-02-11 15:48] VITALS: BP 127/59
--- NOTE | 2018-02-11 16:26 | PSYCHOLOGICAL NOTE ---
Psych Note - Psych Note Date seen by psych provider: 02/11/18 Time seen by psych provider: 13:30 Psych Note: Reason for Consult: medication recommendations patient was admitted to [facility] for hyponatremia. Patient reports that she has an outpatient mental health provider with [facility] and takes her medications as directed. She does feel that it is possible her Latuda is not working and thinks it may need to be changed to Prozac. She reports that she has been on both of these in the past and while Latuda has worked previously it does not seem to be working this time. She denies any thoughts of wanting to harm herself or others. She reports that she feels safe at home. Patient is alert and orientated to person, place, time and circumstance. Mood is euthymic with congruent affect as evidenced by smiling and engaging with clinician. Patient denies suicidal and homicidal ideation. Delusions are absent behaviors congruent with an intact reality based presentation i.e. organized and linear thought process. Eye contact is well-maintained. Con versational speech is within normal rate, tone and prosody. Intellectual abilities appear to be within average range. Attention and concentration are good. Insight, judgment, impulse control are good. No medication recommendations at this time; attending physician reports no longer need recommendations. Diagnosis 311 (F32.9) unspecified depressive disorder R/O 309.89 (F43.8) other specified trauma/stressor related disorder;persistent complex bereavement disorder Impression\plan: Patient is considered psychiatrically clear. Patient does not meet IVC criteria per [place] GS 122C. Patient is currently being seen for medical concerns. Attending physicians originally were concerned that psychiatric medications were contributing to medical presentation however they report this is not a concern any longer. Patient is denies any thoughts of wanting to harm herself or others. Mood is euthymic with congruent affect as evidenced by smiling and engaging with clinician. Patient is recommended to follow-up with her outpatient mental health provider, [facility], upon discharge for continued mental health treatment. Dr. Roach was consulted on the care management this patient; attending physician is agreement with her conditions and disposition.
--- NOTE | 2018-02-11 18:49 | PDOC DISCHARGE SUMMARY ---
General - Admit/Disc Date/PCP Admission Date/Primary Care Provider: 02/08/18 16:01 CONSTANZA DOYLE MD Discharge Date: 02/11/18 - Discharge Diagnosis (1) Hyponatremia Is this a current diagnosis for this admission?: Yes (2) Bipolar 1 disorder Is this a current diagnosis for this admission?: Yes - Additional Information Resuscitation Status: Do Not Resuscitate Discharge Diet: As Tolerated Discharge Activity: Activity As Tolerated, Balance Activity w/Rest, Slowly Increase Activity Home Medications: Diazepam 1 tab PO Q8HP PRN 02/08/18 Lamotrigine 200 mg PO DAILY 02/08/18 Phenazopyridine HCl [Pyridium] 100 mg PO Q8H 02/08/18 Trazodone HCl [Desyrel] 300 mg PO HSP PRN 02/08/18 Zolpidem Tartrate [Ambien] 10 mg PO DAILY 02/08/18 Lurasidone HCl [Latuda 40 mg Tablet] 40 mg PO QAM 02/09/18 Methocarbamol [Robaxin-750] 750 mg PO Q8HP PRN 02/09/18 Multivitamin [Tab-A-Trinh (Multiple Vitamin) Tablet] 1 tab PO DAILY 02/09/18 Sertraline HCl [Zoloft] 100 mg PO DAILY 02/09/18 History of Present Illness History of Present Illness: Admitting hospitalist's H&P: STEPHANIE KOHLI is a 67 year old female with history of recurrent UTI, bladder diverticula, chronic back pain with back surgeries and neck surgeries, anxiety depression, came to the emergency room with complaints of suprapubic pain for 2 weeks. According to her she went to PCP twice initially she was started on Keflex then she is on Cipro still she is having suprapubic pain pain was intense 10 x 10 decided to came to the emergency room for further evaluation during the workup she is found to have severe hyponatremia sodium level of 123. Serum osmolality was sent it was 251. Urine osmolality and urine sodium is pending. Medical consult was called because of the low sodium. She is also complaining of nausea and vomiting at least 1-2 times for the last 2 weeks. Also saying she is drinking a lot of water and peeing a lot also. Also thinks she is on antidepressants and Lamictal/Latuda/Trazodone. States she is compliant with her medications. She is alert and oriented communicating very well. Hospital Course Hospital Course: This is a 67 year old female with history of recurrent UTI, bladder diverticula, chronic back pain with back surgeries and neck surgeries, anxiety, bipolar disorder and depression, came to the emergency room with complaints of suprapubic pain for 2 weeks. According to her she went to PCP twice initially she was started on Keflex then she is on Cipro still she is having suprapubic pain. Further work-up in the ER shows significant hyponatremia with a sodium of 123. Patient did report she has been drinking at least a gallon of water for the past 8-9 days as she thought she has UTI and that drinking more water will "flush the UTI out". Patient was evaluated by nephrology as well who recommended fluid restriction. Patient also was given Tolvaptan. 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 Her sodium did significantly improve with fluid restriction. UA is negative for UTI and there was no growth on urine culture. Patient's lower urninary tract symptoms is likely from a chronic interstitial cystitis. She was recommended urology follow-up by nephro. Her psych medications were also resumed as although they can potentially contribute to her hyponatremia, work-up was more consistent with primary polydipsia. She was given urology ff-up and also a ff-up with her PCP for a repeat BMP on Friday. She will also follow up with nephrology in 3 weeks. Physical Exam Vital Signs: Temp Pulse Resp BP Pulse Ox 98.9 F 68 16 127/59 H 94 02/11/18 15:44 02/11/18 15:44 02/11/18 15:44 02/11/18 15:44 02/11/18 15:44 Intake & Output 02/10/18 02/11/18 02/12/18 06:59 06:59 06:59 Intake Total 772 340 595 Output Total 1975 500 500 Balance -1203 -160 95 Weight 131 lb 6.328 oz 127 lb 13.89 oz General appearance: PRESENT: no acute distress, well-developed, well-nourished Head exam: PRESENT: atraumatic, normocephalic Eye exam: PRESENT: conjunctiva pink, EOMI, PERRLA. ABSENT: scleral icterus Ear exam: PRESENT: normal external ear exam Mouth exam: PRESENT: moist, tongue midline Neck exam: ABSENT: carotid bruit, JVD, lymphadenopathy, thyromegaly Respiratory exam: PRESENT: clear to auscultation norman. ABSENT: rales, rhonchi, wheezes Cardiovascular exam: PRESENT: RRR. ABSENT: diastolic murmur, rubs, systolic murmur Pulses: PRESENT: normal dorsalis pedis pul GI/Abdominal exam: PRESENT: normal bowel sounds, soft. ABSENT: distended, guarding, mass, organolmegaly, rebound, tenderness Rectal exam: PRESENT: deferred Neurological exam: PRESENT: alert, awake, oriented to person, oriented to place, oriented to time, oriented to situation, CN II-XII grossly intact. ABSENT: motor sensory deficit Results Laboratory Results: 02/11/18 06:35 02/11/18 14:55 02/11/18 02/11/18 02/11/18 06:35 06:36 14:55 WBC 7.9 RBC 4.30 Hgb 8.7 L Hct 28.2 L MCV 66 L MCH 20.3 L MCHC 30.9 L RDW 19.2 H Plt Count 327 Seg Neutrophils % 67.4 Lymphocytes % 20.1 Monocytes % 9.0 Eosinophils % 2.7 Basophils % 0.8 Absolute Neutrophils 5.3 Absolute Lymphocytes 1.6 Absolute Monocytes 0.7 Absolute Eosinophils 0.2 Absolute Basophils 0.1 Sodium 133.5 L 133.0 L Potassium 4.1 4.0 Chloride 96 L 94 L Carbon Dioxide 31 H 31 H Anion Gap 7 8 BUN 14 12 Creatinine 0.75 0.68 Est GFR ( Amer) > 60 > 60 Est GFR (Non-Af Amer) > 60 > 60 Glucose 114 H 109 Calcium 9.5 9.5 Magnesium 2.1 02/08/18 02/08/18 02/08/18 14:40 14:40 22:24 Creatine Kinase 48 48 Troponin I < 0.012 NT-Pro-B Natriuret Pep 02/08/18 02/09/18 02/09/18 22:24 04:30 04:30 Creatine Kinase 37 Troponin I < 0.012 < 0.012 NT-Pro-B Natriuret Pep 1070 H Impressions: Chest CT 02/09/18 00:00 IMPRESSION: 1. SCATTERED PARENCHYMAL SCARRING IN THE LUNGS. NO OTHER SIGNIFICANT FINDING ON NON-CONTRASTED CHEST CT. 2. SURGICAL CLIPS ADJACENT TO THE STOMACH AND GASTROESOPHAGEAL JUNCTION. THERE IS TUBING CONTAINED WITHIN THE LUMEN OF THE STOMACH. UNCLEAR TO THE NATURE OF THIS TUBING. RECOMMEND CORRELATION WITH ANY PRIOR PROCEDURES. Renal Ultrasound 02/09/18 13:01 IMPRESSION: 1. RELATIVELY SMALL KIDNEYS. NO EVIDENCE OF HYDRONEPHROSIS. NO FOCAL LESIONS. 2. BLADDER FINDINGS ABOVE. CATHETER IN THE BLADDER. DEBRIS PRESENT WITHIN THE BLADDER. Qualifiers - * PATIENT BEING DISCHARGED WITH ANY OF THE FOLLOWING DIAGNOSIS: No
== END 2018-02-11 17:05 | disposition home or self-care (01) | DRG 641 ==
LOC: ER 13:39 → EH 16:01 → 3W 18:21
PROVIDERS: ADMIT Family Medicine; ATTEND Family Medicine
DX: E87.1 Hypo-osmolality and hyponatremia (principal); N30.10 Interstitial cystitis (chronic) without hematuria; F31.9 Bipolar disorder, unspecified; G89.29 Other chronic pain; M54.9 Dorsalgia, unspecified; F41.9 Anxiety disorder, unspecified; N32.3 Diverticulum of bladder; G43.909 Migraine, unspecified, not intractable, without status migrainosus; D64.9 Anemia, unspecified; I25.10 Atherosclerotic heart disease of native coronary artery without angina pectoris; Z87.891 Personal history of nicotine dependence; Z82.49 Family history of ischemic heart disease and other diseases of the circulatory system; Z83.3 Family history of diabetes mellitus; Z82.3 Family history of stroke; Z83.438 Family history of other disorder of lipoprotein metabolism and other lipidemia; Z86.73 Personal history of transient ischemic attack (TIA), and cerebral infarction without residual deficits; Z88.0 Allergy status to penicillin; Z87.440 Personal history of urinary (tract) infections; Z79.899 Other long term (current) drug therapy; I25.2 Old myocardial infarction; Z23 Encounter for immunization
CPT/HCPCS: 36415; 71250; 76770; 80048; 80053; 80061; 80307; 81001; 82533; 82550; 83735; 83880; 83930; 83935; 84300; 84443; 84484; 84550; 85025; 87040; 87086; 90686; 93005; 93010; 96372; 99291; A9270-GY; J0696; J1170; J1650; J1940; J2405; J3490; J8499

== ENCOUNTER 2018-03-09 17:26 | Emergency (ER) | payer MEDICARE, MEDICAID ==
[2018-03-09 17:46] LABS: APPEARANCE,URINE CLEAR; BILIRUBIN,URINE NEGATIVE (NEGATIVE); COLOR,URINE AMBER; GLUCOSE, URINE NEGATIVE (NEGATIVE); KETONES,URINE NEGATIVE (NEGATIVE); LEUKOCYTE ESTERASE,URINE NEGATIVE (NEGATIVE); NITRITE,URINE POSITIVE (NEGATIVE); PROTEIN,URINE NEGATIVE (NEGATIVE); URINE SPECIFIC GRAVITY 1.004
[2018-03-09 18:07] VITALS: BP 161/71
--- NOTE | 2018-03-09 20:40 | ER Document Report ---
ED GI/ - General Chief Complaint: Urinary Problem Stated Complaint: POSSUBLE UTI Time Seen by Provider: 03/09/18 20:22 Primary Care Provider: CONSTANZA DOYLE MD [Primary Care Provider] - Follow up tomorrow Mode of Arrival: Ambulatory Information source: Patient Notes: 67-year-old female presents to ED for complaint of bladder pain for 3 days. She states she has pain with urination. She states she was seen last month for similar symptoms and was admitted because she had low sodium. She states she has not been over drinking like she did last time but she still having pain with the bladder. She states she has a appointment with a urologist in March. She states she has been taking Azo [id number] and does not want Pyridium. Her urine today does not show any symptoms of a UTI. I will send a culture of the urine that was sent. There is no bacteria in the urine. Patient is alert and oriented respirations regular and unlabored speaking in full sentences. TRAVEL OUTSIDE OF THE [place] IN LAST 30 DAYS: No - HPI Patient complains to provider of: Other - Suprapubic pain and pain with urination Onset: Other - 2 weeks she has had this problem chronically in the past. Last visit in January did not show a UTI Timing/Duration: Intermittent Quality of pain: Burning, Sharp Severity at maximum: Moderate Severity in ED: Moderate Pain Level: 4 Location: Suprapubic Vaginal bleeding (Compared to normal period): None Associated symptoms: Other - Pain and burning with urination suprapubic pain Exacerbated by: Walking Relieved by: Denies Similar symptoms previously: Yes Recently seen / treated by doctor: No - Related Data Allergies/Adverse Reactions: amoxicillin Allergy (Verified 02/08/18 13:41) Past Medical History - General Information source: Patient - Social History Smoking Status: Never Smoker Cigarette use (# per day): No Chew tobacco use (# tins/day): No Smoking Education Provided: No Frequency of alcohol use: Occasional Drug Abuse: None Occupation: Retired Lives with: Family Family History: CAD, COPD, CVA, DM, Hyperlipidemia, Hypertension, Malignancy Patient has suicidal ideation: No Patient has homicidal ideation: No - Past Medical History Cardiac Medical History: Reports: Hx Coronary Artery Disease, Hx Heart Attack Pulmonary Medical History: Reports: None EENT Medical History: Reports: None Neurological Medical History: Reports: Hx Cerebrovascular Accident, Hx Migraine Endocrine Medical History: Reports: None Renal/ Medical History: Reports: None Malignancy Medical History: Reports: None GI Medical History: Reports: None Musculoskeletal Medical History: Reports Hx Musculoskeletal Deformity, Reports Hx Musculoskeletal Trauma Skin Medical History: Reports None Psychiatric Medical History: Reports: Hx Anxiety, Hx Bipolar Disorder, Hx Depression Traumatic Medical History: Reports: Hx Fractures - Wrist and left foot Infectious Medical History: Reports: None Past Surgical History: Reports: Hx Cardiac Catheterization, Hx Orthopedic Surgery - Back surgery 2, foot surgery - Immunizations Hx Diphtheria, Pertussis, Tetanus Vaccination: No Review of Systems - Review of Systems Constitutional: No symptoms reported EENT: No symptoms reported Cardiovascular: No symptoms reported Respiratory: No symptoms reported Gastrointestinal: No symptoms reported Genitourinary: Burning, Other - Suprapubic pain Female Genitourinary: No symptoms reported Musculoskeletal: No symptoms reported Skin: No symptoms reported Hematologic/Lymphatic: No symptoms reported Neurological/Psychological: No symptoms reported -: Yes All other systems reviewed and negative Physical Exam - Vital signs Vitals: Temp Pulse Resp BP Pulse Ox 98.8 F 82 14 161/71 H 95 03/09/18 18:05 03/09/18 18:05 03/09/18 18:05 03/09/18 18:05 03/09/18 18:05 Interpretation: Normal - General General appearance: Appears well, Alert - HEENT Head: Normocephalic, Atraumatic Eyes: Normal Pupils: PERRL - Respiratory Respiratory status: No respiratory distress Chest status: Nontender Breath sounds: Normal Chest palpation: Normal - Cardiovascular Rhythm: Regular Heart sounds: Normal auscultation Murmur: No - Abdominal Inspection: Normal Distension: No distension Bowel sounds: Normal Tenderness: Tender - Suprapubic pain no flank pain Organomegaly: No organomegaly - Back Back: Normal, Nontender - Extremities General upper extremity: Normal inspection, Nontender, Normal color, Normal ROM, Normal temperature General lower extremity: Normal inspection, Nontender, Normal color, Normal ROM, Normal temperature, Normal weight bearing. No: Derrell's sign - Neurological Neuro grossly intact: Yes Cognition: Normal Orientation: AAOx4 Martin Coma Scale Eye Opening: Spontaneous Martin Coma Scale Verbal: Oriented [place] Coma Scale Motor: Obeys Commands Martin Coma Scale Total: 15 Speech: Normal Motor strength normal: LUE, RUE, LLE, RLE Sensory: Normal - Psychological Associated symptoms: Normal affect, Normal mood - Skin Skin Temperature: Warm Skin Moisture: Dry Skin Color: Normal Course - Re-evaluation Re-evalutation: 03/09/18 20:38 Patient states she is drinking 3 cups of water a day. She states she does not need blood work to check for a low sodium as she is not over drinking. She states she is having the bladder pain like she always does. She states she is taken Pyridium like she always does. She states that the symptoms are the same as last time when they gave her Cipro and she felt much better with the Cipro. I have explained to her that the urine cultures were negative last time and I will repeat the urine culture on her urine. I instructed that she needs to follow-up with Dr. Tay tomorrow and see if she can get into the urologist sooner if she is continued to have the symptoms. Patient was instructed to return to the ED for any fever chills or increase in symptoms. Patient verbalized understanding and agreement with treatment plan. She states she did not want blood drawn at this time. She states she would want a pain medicine before she is discharged. I will write her a dose of [place] before she is discharged. - Vital Signs Vital signs: Temp Pulse Resp BP Pulse Ox 98.8 F 82 14 161/71 H 95 03/09/18 18:05 03/09/18 18:05 03/09/18 18:05 03/09/18 18:05 03/09/18 18:05 - Laboratory Laboratory results interpreted by me: 03/09/18 17:25 Urine Nitrite POSITIVE H Urine Urobilinogen 4.0 H Discharge - Discharge Clinical Impression: Chronic suprapubic pain, Dysuria Condition: Stable Disposition: HOME, SELF-CARE Additional Instructions: Your urine was negative for a UTI today I will send the urine for culture to ensure that nothing grows if it does a prescription for antibiotics will be called into you. At this time there is no need for an antibiotic. I have offered to write Pyridium for you but you have stated that she would prefer to take the Azo [id number] and just take double the dose. I have instructed you to please follow-up with Dr. Tay in the next 24-48 hours and to take the urine results with you to this appointment. I have also given you a copy of the urine results from the last visit as well as the culture from the last visit. Ibuprofen Ibuprofen is an excellent, safe drug for pain control. In addition, it has potent antiinflammatory effects which are beneficial, especially in the treatment of injuries, arthritis, or tendonitis. It's best to take ibuprofen with food. Persons with ulcer disease or allergy to aspirin should notify their physician of this before taking ibuprofen. Take the medication exactly as prescribed. Don't take additional doses unless instructed to do so by your doctor. If you develop wheezing, shortness of breath, hives, faintness, stomach pain, vomiting, or dark black stools, return for re-evaluation at once. Acetaminophen Acetaminophen may be taken for pain relief or fever control. It's much safer than aspirin, offering a wider range of "safe" dosages. It is safe during . Some brand names are Tylenol, Panadol, Datril, Anacin 3, Tempra, and Liquiprin. Acetaminophen can be repeated every four hours. The following are maximum recommended dosages: WEIGHT Dose Drops Elixir Chewable(80mg) (LBS.) drprs=droppers tsp=teaspoon 6 40 mg .4 ml (1/2) 6-11 80 mg .8 ml (full) 1/2 tsp 1 tab 12-16 120 mg 1 1/2 drprs 3/4 tsp 1 1/2 tabs 17-23 160 mg 2 drprs 1 tsp 2 tabs 24-30 240 mg 3 drprs 1 1/2 tsp 3 tabs 30-35 320 mg 2 tsp 4 tabs 36-41 360 mg 2 1/4 tsp 4 1/2 tabs 42-47 400 mg 2 1/2 tsp 5 tabs 48-53 480 mg 3 tsp 6 tabs 54-59 520 mg 3 1/4 tsp 6 1/2 tabs 60-64 560 mg 3 1/2 tsp 7 tabs 65-70 600 mg 3 3/4 tsp 7 1/2 tabs 71-76 640 mg 4 tsp 8 tabs 77-82 720 mg 4 1/2 tsp 9 tabs 83-88 800 mg 5 tsp 10 tabs >89 pounds or adults 650 mg to 900 mg Acetaminophen can be repeated every four hours. Maximum daily dose not to exceed 4000 mg. These maximum recommended dosages are slightly higher than the dosages written on the product container, but these dosages are very safe and well below the toxic dosage for acetaminophen. Urinary Anesthetic Agent You have been given a medication for urinary tract discomfort. This medicine numbs the lining of the bladder and urethra, resulting in less pain, burning, and urgency. You may take it as needed, according to instructions. W hen the symptoms resolve, you can stop this medication (be sure to continue any other medications the doctor has given you). This medicine turns the urine a dark orange. It may stain underwear. Occasionally, it can cause nausea. Return for evaluation if there are any unexpected effects, such as itching, hives, or shortness of breath. Oral Narcotic Medication You have been given a [place] for pain control. This medication is a narcotic. It's best taken with food, as nausea can result if taken on an empty stomach. Don't operate machinery or drive within six hours of taking this medication. Do not combine this medicine with alcohol, or with any medication which can cause sedation (such as cold tablets or sleeping pills) unless you get permission from the physician. Narcotics tend to cause constipation. If possible, drink plenty of fluids and eat a diet high in fiber and fruits. FOLLOW-UP CARE: If you have been referred to a physician for follow-up care, call the physicians office for an appointment as you were instructed or within the next two days. If you experience worsening or a significant change in your symptoms, notify the physician immediately or return to the Emergency Department at any time for re-evaluation. Prescriptions: Phenazopyridine HCl [Pyridium 200 mg Tablet] 200 mg PO TID #15 tablet Referrals: CONSTANZA DOYLE MD [Primary Care Provider] - Follow up tomorrow
[2018-03-09] MEDS ORDERED: HYDROCODONE/ACETAMINOPHEN 5-325 MG TABLET PO ONE (20:44)
== END 2018-03-09 20:59 | disposition home or self-care (01) ==
LOC: ER 17:26
DX: G89.29 Other chronic pain (principal); R10.2 Pelvic and perineal pain; R30.0 Dysuria; I25.10 Atherosclerotic heart disease of native coronary artery without angina pectoris; I25.2 Old myocardial infarction; Z88.0 Allergy status to penicillin; Z86.73 Personal history of transient ischemic attack (TIA), and cerebral infarction without residual deficits
CPT/HCPCS: 99283; 87086; 81001; A9270

== ENCOUNTER 2018-04-30 10:55 | Observation (INO) | payer MEDICARE, MEDICAID ==
--- NOTE | 2018-04-30 12:04 | ER Document Report ---
ED General - General Chief Complaint: Chest Pain Stated Complaint: CHEST PAIN Time Seen by Provider: 04/30/18 12:04 Primary Care Provider: CONSTANZA DOYLE MD [Primary Care Provider] - Follow up as needed Information source: Patient TRAVEL OUTSIDE OF THE [place] IN LAST 30 DAYS: No - HPI Notes: 60-year-old female with a history of [place] 15 years ago as well as a TIA 5 years ago presents to the ED for intermittent chest pain that has been occurring on and off for the last week, denies any radiation of pain states that she feels like she has a "squeezing pain" around her chest, states pain can last for an hour and then goes away, occurs at rest. Patient is a non-smoker, states mother and father both from cancer unsure of the cardiac history. Patient denies any new foods, travel or medications. Denies any shortness of breath when she is having chest pain is currently having chest pain at this time, denies fevers, chills, ,palpitations, shortness of breath, dyspnea, nausea, vomiting, diarrhea, abdominal pain, hematuria,blurred vision, double vision, loss of vision, speech changes, LH, dizziness, syncope, headaches, wheezing, ST, URI, neck pain, weakness, bowel or bladder dysfunction, saddle anesthesia, numbness or tingling in bilateral upper or lower extremities equally, muscle paralysis, weakness in bilateral upper or lower extremities equally - Related Data Allergies/Adverse Reactions: amoxicillin Allergy (Verified 02/08/18 13:41) Past Medical History - General Information source: Patient - Social History Smoking Status: Never Smoker Chew tobacco use (# tins/day): No Frequency of alcohol use: Occasional Drug Abuse: None Family History: CAD, COPD, CVA, DM, Hyperlipidemia, Hypertension, Malignancy Patient has suicidal ideation: No Patient has homicidal ideation: No - Past Medical History Cardiac Medical History: Reports: Hx Coronary Artery Disease, Hx Heart Attack Neurological Medical History: Reports: Hx Cerebrovascular Accident, Hx Migraine Renal/ Medical History: Denies: Hx Peritoneal Dialysis Musculoskeletal Medical History: Reports Hx Musculoskeletal Deformity, Reports Hx Musculoskeletal Trauma Psychiatric Medical History: Reports: Hx Anxiety, Hx Bipolar Disorder, Hx Depression Traumatic Medical History: Reports: Hx Fractures - Wrist and left foot Past Surgical History: Reports: Hx Cardiac Catheterization, Hx Orthopedic Surgery - Back surgery 2, foot surgery - Immunizations Hx Diphtheria, Pertussis, Tetanus Vaccination: No Review of Systems - Review of Systems Constitutional: No symptoms reported EENT: No symptoms reported Cardiovascular: See HPI Respiratory: No symptoms reported Gastrointestinal: No symptoms reported Genitourinary: No symptoms reported Female Genitourinary: No symptoms reported Musculoskeletal: No symptoms reported Skin: No symptoms reported Hematologic/Lymphatic: No symptoms reported Neurological/Psychological: No symptoms reported Physical Exam - Vital signs Vitals: Temp Pulse Resp BP Pulse Ox 98.2 F 80 16 147/81 H 100 04/30/18 11:07 04/30/18 11:07 04/30/18 11:07 04/30/18 11:07 04/30/18 11:07 - Notes Notes: PHYSICAL EXAMINATION: GENERAL: Well-appearing, well-nourished and in no acute distress. HEAD: Atraumatic, normocephalic. EYES: Pupils equal round and reactive to light, extraocular movements intact, conjunctiva are normal. ENT: Nares patent, oropharynx clear without exudates. Moist mucous membranes. NECK: Normal range of motion, supple without lymphadenopathy LUNGS: Breath sounds clear to auscultation bilaterally and equal. No wheezes rales or rhonchi. HEART: Regular rate and rhythm without murmurs ABDOMEN: Soft, nontender, nondistended abdomen. No guarding, no rebound. No masses appreciated. Female : deferred Musculoskeletal: Normal range of motion, no pitting or edema. No cyanosis. NEUROLOGICAL: Cranial nerves grossly intact. Normal speech, normal gait. Normal sensory, motor exams PSYCH: Normal mood, normal affect. SKIN: Warm, Dry, normal turgor, no rashes or lesions noted. 22-like and then on the other half of a flight Course - Re-evaluation Re-evalutation: 04/30/18 14:28 60-year-old female afebrile vitals stable no distress presents for evaluation of intermittent chest pain that has been occurring over the last week was seen by her primary care provider today, Dr. Martins, who advised her to be seen in the emergency room. EKG negative for STEMI, no previous EKG's. Patient has a moderate heart score due to previous history with MIs TIAs being over 65, first troponin was negative. Patient given nitro 0.4 sublingual, states her chest pain did get relieved but still having slight chest pain bilaterally. Consulted with Dr. Nilesh Encarnacion, hospitalist who will admit patient to observation telemetry if her second troponin is negative. CBC CMP negative for any anemia, leukocytosis, renal hepatic dysfunction, electrolyte disturbances. Second set of troponin was negative. Patient will be admitted to medical service in the observation unit under Dr. Encarnacion for need of a stress test as well as an echocardiogram. Patient was agreeable with this plan of care and agree with plan of care. All questions and concerns answered by this provider. - Vital Signs Vital signs: Temp Pulse Resp BP Pulse Ox 98.2 F 80 14 132/63 H 96 04/30/18 11:07 04/30/18 11:07 04/30/18 16:00 04/30/18 14:01 04/30/18 14:01 - Laboratory Result Diagrams: 04/30/18 12:30 04/30/18 12:30 Laboratory results interpreted by me: 04/30/18 04/30/18 12:30 12:30 WBC 12.4 H Hgb 10.0 L Hct 32.3 L MCV 65 L MCH 20.0 L MCHC 30.9 L RDW 18.8 H Absolute Neutrophils 9.3 H Total Protein 8.3 H Discharge - Discharge Clinical Impression: Chest pain Condition: Stable Disposition: ADMITTED OBSERVATION Admitting Provider: Hospitalist - Dr. Nilesh Encarnacion Referrals: CONSTANZA DOYLE MD [Primary Care Provider] - Follow up as needed
[2018-04-30] MEDS ORDERED: NORMAL SALINE 1000 ML 1,000 ML IV PRN (12:18)
[2018-04-30] MEDS ORDERED: ASPIRIN 81 MG TABLET, CHEWABLE PO ONE (12:18)
[2018-04-30] MEDS ORDERED: NITROGLYCERIN 0.4 MG/TAB 25 TAB/BOTTLE SL ONE (12:19)
[2018-04-30 12:56] LABS: ABSOLUTE EOSINOPHILS # (AUTO) 0.2 10^3/uL (0.0-0.6); ABSOLUTE LYMPHOCYTES (AUTO) 2.2 10^3/uL (0.5-4.7); ABSOLUTE MONOCYTES (AUTO) 0.6 10^3/uL (0.1-1.4); ABSOLUTE NEUT (AUTO) 9.3 10^3/uL (1.7-8.2); BASOPHILS % (AUTO) 0.3 % (0-2); EOSINOPHILS % (AUTO) 1.4 % (0-6); HEMATOCRIT 32.3 % (36.0-47.0); LYMPHOCYTES % (AUTO) 17.9 % (13-45); MEAN CORPUSCULAR HGB CONC 30.9 g/dL (32.0-36.0); MEAN CORPUSCULAR VOLUME 65 fl (80-97); MONOCYTES % (AUTO) 5.1 % (3-13); PLATELET COUNT 406 10^3/uL (150-450); RED BLOOD COUNT 4.98 10^6/uL (3.72-5.28); RED CELL DISTRIBUTION WIDTH 18.8 % (11.5-14.0); SEGMENTED NEUTROPHILS % (AUTO) 75.3 % (42-78); TOTAL CELLS COUNTED % (AUTO) 100 %; WHITE BLOOD COUNT 12.4 10^3/uL (4.0-10.5)
[2018-04-30 13:08] LABS: ALANINE AMINOTRANSFERASE 14 U/L (9-52); ALBUMIN 4.5 g/dL (3.5-5.0); ALKALINE PHOSPHATASE 94 U/L (38-126); ANION GAP 15 (5-19); ASPARTATE AMINO TRANSFERASE 21 U/L (14-36); BILIRUBIN,DIRECT 0.3 mg/dL (0.0-0.4); BILIRUBIN,TOTAL 0.4 mg/dL (0.2-1.3); BLOOD UREA NITROGEN 12 mg/dL (7-20); CALCIUM 10.2 mg/dL (8.4-10.2); CARBON DIOXIDE 23 mmol/L (22-30); CHLORIDE 101 mmol/L (98-107); CREATINE KINASE 36 U/L (30-135); GLUCOSE 87 mg/dL (75-110); POTASSIUM 3.7 mmol/L (3.6-5.0); SODIUM 138.5 mmol/L (137-145); TOTAL PROTEIN 8.3 g/dL (6.3-8.2)
[2018-04-30 13:15] LABS: ANISOCYTOSIS 2+; BURR CELLS SLIGHT; HYPOCHROMASIA 2+; OVALOCYTES SLIGHT; POIKILOCYTOSIS SLIGHT; TEAR DROP CELLS SLIGHT
[2018-04-30 13:16] LABS: PLATELET COMMENT ADEQUATE
--- NOTE | 2018-04-30 13:19 | RADIOLOGY REPORT (SQ) ---
EXAM DESCRIPTION: CHEST 2 VIEWS COMPLETED DATE/TIME: 04/30/2018 1:06 pm REASON FOR STUDY: cp COMPARISON: None. EXAM PARAMETERS: NUMBER OF VIEWS: two views TECHNIQUE: Digital Frontal and Lateral radiographic views of the chest acquired. RADIATION DOSE: NA LIMITATIONS: none FINDINGS: LUNGS AND PLEURA: No opacities, masses or pneumothorax. No pleural effusion. MEDIASTINUM AND HILAR STRUCTURES: No masses or contour abnormalities. HEART AND VASCULAR STRUCTURES: Heart normal size. No evidence for failure. BONES: Thoracolumbar scoliosis with associated disc degenerative disease. HARDWARE: None in the chest. OTHER: Catheter tubing in the included upper abdomen. IMPRESSION: No acute abnormality of the lungs. No focal airspace opacity. TECHNICAL DOCUMENTATION: JOB ID: [id number] [employer]- All Rights Reserved Reading location - IP/workstation name: [email or web address]
[2018-04-30 13:32] LABS: TROPONIN I < 0.012 ng/mL
[2018-04-30 15:08] LABS: APPEARANCE,URINE CLEAR; BILIRUBIN,URINE NEGATIVE (NEGATIVE); COLOR,URINE YELLOW; GLUCOSE, URINE NEGATIVE (NEGATIVE); KETONES,URINE NEGATIVE (NEGATIVE); LEUKOCYTE ESTERASE,URINE NEGATIVE (NEGATIVE); NITRITE,URINE NEGATIVE (NEGATIVE); PROTEIN,URINE NEGATIVE (NEGATIVE); URINE SPECIFIC GRAVITY 1.009; UROBILINOGEN,URINE NEGATIVE mg/dL (<2.0)
[2018-04-30 15:22] LABS: CREATINE KINASE MB 0.95 ng/mL (<4.55)
[2018-04-30 15:23] LABS: TROPONIN I < 0.012 ng/mL
[2018-04-30] MEDS ORDERED: ONDANSETRON HCL INJ/PF 4 MG/2 ML SDV IV PRN (16:26)
[2018-04-30] MEDS ORDERED: MORPHINE SULFATE 10 MG/ML INJ IV PRN (16:41)
--- NOTE | 2018-04-30 16:58 | PDOC H&P ---
History of Present Illness Admission Date/PCP: CONSTANZA DOYLE MD Patient complains of: Chest pain History of Present Illness: STEPHANIE KOHLI is a 68 year old female with history of [place] 15 years ago, history of pancreatitis with a feeding tube 10 years ago, TIA more than 10 years ago, bipolar disorder depression anxiety disorder, gastric ulcer status post surgery, history of neck surgery came to the emergency room with complaints of chest pain on and off for the last 1 week. Pain is worse from last night 10 x 10. According to the patient it was a bandlike pain around the chest squeezing in nature. Associated with sweating. Denies any aggravating factors or relieving factors. Denies any nausea vomiting's or lightheadedness. 2 troponins are negative in the emergency room medical consult was called for possible stress test tomorrow. Past Medical History Cardiac Medical History: Reports: Coronary Artery Disease, Myocardial Infarction Neurological Medical History: Reports: Migraine Psychiatric Medical History: Reports: Bipolar Disorder, Depression Past Surgical History Past Surgical History: Reports: Cardiac Catheterization, Orthopedic Surgery - Back surgery 2, foot surgery, Other - Neck surgery and pancreatic surgery with feeding tube placement several yea Social History Smoking Status: Never Smoker Frequency of Alcohol Use: Occasional Hx Recreational Drug Use: No Drugs: None Hx Prescription Drug Abuse: No - Advance Directive Resuscitation Status: Do Not Resuscitate Family History Family History: CAD, COPD, CVA, DM, Hyperlipidemia, Hypertension, Malignancy Parental Family History Reviewed: Yes - Brother with COPD, dad with colon cancer. Children Family History Reviewed: Yes Sibling(s) Family History Reviewed.: Yes Medication/Allergy Allergies/Adverse Reactions: amoxicillin Allergy (Verified 02/08/18 13:41) Review of Systems Constitutional: ABSENT: fever(s), headache(s), weakness Eyes: ABSENT: visual disturbances Ears: ABSENT: hearing changes Cardiovascular: PRESENT: chest pain. ABSENT: dyspnea on exertion, edema, orthropnea, palpitations Respiratory: ABSENT: cough, hemoptysis Gastrointestinal: ABSENT: abdominal pain, constipation, diarrhea, hematemesis, hematochezia, nausea, vomiting Neurological: ABSENT: abnormal gait, abnormal speech, confusion, dizziness, focal weakness, syncope Physical Exam Vital Signs: Temp Pulse Resp BP Pulse Ox 98.2 F 80 14 132/63 H 96 04/30/18 11:07 04/30/18 11:07 04/30/18 16:00 04/30/18 14:01 04/30/18 14:01 Intake & Output 04/29/18 04/30/18 05/01/18 06:59 06:59 06:59 Intake Total 1000 Balance 1000 Weight 56.5 kg General appearance: PRESENT: no acute distress Head exam: PRESENT: atraumatic Eye exam: PRESENT: PERRLA Neck exam: ABSENT: carotid bruit, JVD, lymphadenopathy, thyromegaly Respiratory exam: PRESENT: clear to auscultation norman. ABSENT: rales, rhonchi, wheezes Cardiovascular exam: PRESENT: RRR. ABSENT: diastolic murmur, rubs, systolic murmur GI/Abdominal exam: PRESENT: normal bowel sounds, soft. ABSENT: distended, guar ding, mass, organolmegaly, rebound, tenderness Neurological exam: PRESENT: alert, awake, oriented to person, oriented to place, oriented to time, oriented to situation, CN II-XII grossly intact. ABSENT: motor sensory deficit Psychiatric exam: PRESENT: appropriate affect, normal mood. ABSENT: homicidal ideation, suicidal ideation Results Laboratory Results: 04/30/18 12:30 04/30/18 12:30 04/30/18 04/30/18 04/30/18 12:30 12:30 14:40 WBC 12.4 H RBC 4.98 Hgb 10.0 L Hct 32.3 L MCV 65 L MCH 20.0 L MCHC 30.9 L RDW 18.8 H Plt Count 406 Seg Neutrophils % 75.3 Lymphocytes % 17.9 Monocytes % 5.1 Eosinophils % 1.4 Basophils % 0.3 Absolute Neutrophils 9.3 H Absolute Lymphocytes 2.2 Absolute Monocytes 0.6 Absolute Eosinophils 0.2 Absolute Basophils 0.0 Sodium 138.5 Potassium 3.7 Chloride 101 Carbon Dioxide 23 Anion Gap 15 BUN 12 Creatinine 0.68 Est GFR ( Amer) > 60 Est GFR (Non-Af Amer) > 60 Glucose 87 Calcium 10.2 Total Bilirubin 0.4 AST 21 ALT 14 Alkaline Phosphatase 94 Total Protein 8.3 H Albumin 4.5 Urine Color YELLOW Urine Appearance CLEAR Urine pH 6.0 Ur Specific Beatrice 1.009 Urine Protein NEGATIVE Urine Glucose (UA) NEGATIVE Urine Ketones NEGATIVE Urine Blood NEGATIVE Urine Nitrite NEGATIVE Ur Leukocyte Esterase NEGATIVE Urine WBC (Auto) 1 Urine RBC (Auto) 0 04/30/18 04/30/18 04/30/18 12:30 12:30 14:33 Creatine Kinase 36 31 CK-MB (CK-2) 1.10 Troponin I < 0.012 04/30/18 14:33 Creatine Kinase CK-MB (CK-2) 0.95 Troponin I < 0.012 Impressions: Chest X-Ray 04/30/18 12:05 IMPRESSION: No acute abnormality of the lungs. No focal airspace opacity. Assessment and Plan - Diagnosis (1) Chest pain Is this a current diagnosis for this admission?: Yes Plan: 04/30/2018 patient is going to be admitted to telemetry for chest pain. Teleme try monitoring, cardiac enzymes x3 along with a lipid panel in the morning. Stress test was requested. Started on aspirin statins and a Lovenox 40 mg subcu daily. To place her on IV morphine 1 mg every 4 as needed for chest pain. Placed on oxygen 2 L nasal cannula. Patient is admitted under observation. (2) Bipolar 1 disorder Is this a current diagnosis for this admission?: No Plan: 04/30/2018 patient is giving history of bipolar disorder she is on Lamictal, Seroquel, Valium, trazodone, Ambien plan is to restart all those medications while she was in the hospital. (3) Hypertension Is this a current diagnosis for this admission?: No Plan: 04/30/2018 patient is given the history of hypertension the ER is stable. Latest blood pressure is 132/63 with heart rate in the 60s. As the home medications are reconciled we are going to resume the medications. (4) Anemia Is this a current diagnosis for this admission?: No Plan: 04/30/2018 patient hemoglobin is 10. Do not have the baseline hemoglobin. Anemia of chronic disease due to unknown causes. To check anemia profile. (5) Depression Is this a current diagnosis for this admission?: No Plan: 04/30/2018 patient given the history of depression but denies any symptoms of depression today. She is on trazodone and Seroquel at home plan is to resume those medications while she was in the hospital. (6) Coronary artery disease Is this a current diagnosis for this admission?: No Plan: 04/30/2018-patient given the history of [place] 15 years ago. Status post cardiac catheter time denies any stents placements. Admitted for chest pain this time plan to do the stress test tomorrow. - Time Time Spent with patient: 15-24 minutes Medications reviewed and adjusted accordingly: Yes Anticipated discharge: Home
[2018-04-30] MEDS: ACETAMINOPHEN 325 MG TABLET PO PRN (18:39)
[2018-04-30 21:39] LABS: CREATINE KINASE MB 0.79 ng/mL (<4.55); TROPONIN I < 0.012 ng/mL
[2018-04-30] MEDS ORDERED: SIMVASTATIN 10 MG TABLET PO SCH (22:00)
--- NOTE | 2018-04-30 22:44 | EKG REPORT ---
SEVERITY:- ABNORMAL ECG - SINUS RHYTHM PROBABLE LEFT ATRIAL ABNORMALITY NONSPECIFIC T ABNORMALITIES, ANT-LAT LEADS : Confirmed by: Brooklynn Morrell 30-Apr-2018 22:43:35
[2018-04-30] MEDS: FAMOTIDINE 20 MG TABLET PO SCH (22:57)
[2018-04-30] MEDS ORDERED: ZOLPIDEM TARTRATE 5 MG TABLET PO ONE (23:15)
[2018-05-01 03:04] LABS: ABSOLUTE BASOPHILS # (AUTO) 0.1 10^3/uL (0.0-0.2); ABSOLUTE EOSINOPHILS # (AUTO) 0.3 10^3/uL (0.0-0.6); ABSOLUTE LYMPHOCYTES (AUTO) 2.5 10^3/uL (0.5-4.7); ABSOLUTE MONOCYTES (AUTO) 0.6 10^3/uL (0.1-1.4); ABSOLUTE NEUT (AUTO) 5.7 10^3/uL (1.7-8.2); HEMATOCRIT 26.9 % (36.0-47.0); HEMOGLOBIN 8.5 g/dL (12.0-15.5); LYMPHOCYTES % (AUTO) 27.5 % (13-45); MEAN CORPUSCULAR HEMOGLOBIN 20.2 pg (27.0-33.4); MEAN CORPUSCULAR HGB CONC 31.4 g/dL (32.0-36.0); MONOCYTES % (AUTO) 6.6 % (3-13); PLATELET COUNT 310 10^3/uL (150-450); RED CELL DISTRIBUTION WIDTH 18.4 % (11.5-14.0); SEGMENTED NEUTROPHILS % (AUTO) 61.9 % (42-78); TOTAL CELLS COUNTED % (AUTO) 100 %; WHITE BLOOD COUNT 9.2 10^3/uL (4.0-10.5)
[2018-05-01 03:28] LABS: ALANINE AMINOTRANSFERASE 28 U/L (9-52); ALBUMIN 3.1 g/dL (3.5-5.0); ALKALINE PHOSPHATASE 71 U/L (38-126); ANION GAP 9 (5-19); ASPARTATE AMINO TRANSFERASE 14 U/L (14-36); BILIRUBIN,DIRECT 0.1 mg/dL (0.0-0.4); BILIRUBIN,TOTAL 0.1 mg/dL (0.2-1.3); BLOOD UREA NITROGEN 12 mg/dL (7-20); CALCIUM 9.6 mg/dL (8.4-10.2); CARBON DIOXIDE 22 mmol/L (22-30); CHLORIDE 108 mmol/L (98-107); CHOLESTEROL 137.86 mg/dL (0-200); GLUCOSE 102 mg/dL (75-110); POTASSIUM 4.1 mmol/L (3.6-5.0); SODIUM 138.7 mmol/L (137-145); TRIGLYCERIDES 87 mg/dL (<150)
[2018-05-01 03:31] LABS: ANISOCYTOSIS 2+; HYPOCHROMASIA 1+; OVALOCYTES SLIGHT; PLATELET COMMENT ADEQUATE; POIKILOCYTOSIS SLIGHT
[2018-05-01 03:32] LABS: MEAN CORPUSCULAR VOLUME 64 fl (80-97)
[2018-05-01 03:39] LABS: DIRECT LDL 94 mg/dL (<100)
[2018-05-01 03:47] LABS: CREATINE KINASE MB 0.74 ng/mL (<4.55)
[2018-05-01 04:00] LABS: TROPONIN I < 0.012 ng/mL
[2018-05-01] MEDS: ENOXAPARIN SODIUM INJ 40 MG/0.4 ML DISP.SYRIN SUBCUT SCH ×2 (07:58→10:16)
[2018-05-01] MEDS ORDERED: REGADENOSON INJ 0.4 MG/5 ML DISP.SYRIN IV ONE (09:51)
[2018-05-01] MEDS ORDERED: ASPIRIN 81 MG TABLET, CHEWABLE PO SCH (10:00)
[2018-05-01] MEDS ORDERED: TRAZODONE HCL 50 MG TABLET PO SCH (10:00)
[2018-05-01] MEDS ORDERED: LAMOTRIGINE 100 MG TABLET PO SCH (10:00)
[2018-05-01] MEDS ORDERED: QUETIAPINE FUMARATE 100 MG TABLET PO SCH (10:00)
[2018-05-01] MEDS: FAMOTIDINE 20 MG TABLET PO SCH (10:15)
[2018-05-01 11:06] LABS: CREATINE KINASE MB 0.78 ng/mL (<4.55)
[2018-05-01 11:11] LABS: TROPONIN I < 0.012 ng/mL
[2018-05-01 11:34] LABS: PATH REVIEW PATHOLOGIST REVIEWED
[2018-05-01 14:37] VITALS: BP 121/45
--- NOTE | 2018-05-01 14:50 | PDOC DISCHARGE SUMMARY ---
Addendum entered and electronically signed by EMELY GROSS PA-C 05/01/18 15:54: Provider Note Provider Note: Case discussed with cardiology. Recommendations were to start patient on beta- leanna and as needed nitroglycerin sublingual on discharge. Cardiology agreed with simvastatin and aspirin. Patient has cardiology card has been instructed to call his office Friday for an outpatient appointment. Further discussion and recommendations will be made pending that time. Patient is understandable and agreeable to these terms. Hold parameters were placed on beta-leanna. Lopressor 25 mg every 12 hours ordered. Nitroglycerin 0.4 mg as needed for chest pain, may repeat every 5 minutes x2 for a total of 3 doses ordered. Cardiology reported a slightly abnormal stress test, and we will review these findings with the patient outpatient. Cardiology was agreeable with discharge. Addendum entered and electronically signed by EMELY GROSS PA-C 05/01/18 14:56: Provider Note Provider Note: Patient did not have an echocardiogram performed. That was entered in error. When stress test has been confirmed negative by cardiology. Patient may be disc harged. Original Note: General - Admit/Disc Date/PCP Admission Date/Primary Care Provider: 04/30/18 17:06 CONSTANZA DOYLE MD Discharge Date: 05/01/18 - Discharge Diagnosis (1) Chest pain Is this a current diagnosis for this admission?: Yes (2) Anemia Is this a current diagnosis for this admission?: No (3) Bipolar 1 disorder Is this a current diagnosis for this admission?: No (4) Coronary artery disease Is this a current diagnosis for this admission?: No - Additional Information Resuscitation Status: Do Not Resuscitate Discharge Diet: Cardiac Discharge Activity: Activity As Tolerated Home Medications: Diazepam [Valium] 10 mg PO Q8HP PRN 04/30/18 Fluticasone Propionate [Flonase Nasal [place] 50 Mcg/[place] 16 gm] 2 spray NASL DAILY 04/30/18 Lamotrigine [Lamictal] 200 mg PO DAILY 04/30/18 Trazodone HCl [Desyrel] 100 mg PO QHS 04/30/18 Zolpidem Tartrate [Ambien] 10 mg PO QHS 04/30/18 Acetaminophen [Tylenol 325 mg Tablet] 650 mg PO Q4HP PRN tablet 03/22/19 Aspirin [Aspirin 81 mg Chewable Tablet] 81 mg PO DAILY #30 tab.chew 05/01/18 Simvastatin [Zocor 10 mg Tablet] 10 mg PO QHS #30 tablet 05/01/18 History of Present Illness History of Present Illness: STEPHANIE KOHLI is a 68 year old female with history of MD 15 years ago, history of pancreatitis with a feeding tube 10 years ago, TIA more than 10 years ago, bipolar disorder depression anxiety disorder, gastric ulcer status post surgery, history of neck surgery came to the emergency room with complaints of chest pain on and off for the last 1 week. Pain is worse from last night 10 x 10. According to the patient it was a bandlike pain around the chest squeezing in nature. Associated with sweating. Denies any aggravating factors or relieving factors. Denies any nausea vomiting's or lightheadedness. 2 troponins are negative in the emergency room medical consult was called for possible stress test tomorrow. Hospital Course Hospital Course: Chest pain-chronic in nature x 1 week. She reports the chest pain has not stopped for 1 week now. She has no other coronary related symptoms. No specific pattern that makes it worse or better. Cardiac enzymes were negative x3. No EKG changes were noted. Patient's vital signs have remained stable. Given her history of coronary artery disease she was started on a daily aspirin of 81mg and simvastatin 10 mg nightly. She had a stress test performed on the morning of May 01. She also had a echocardiogram performed. Patient admits to be an anxious person, and does believe this could play a role into her chest pain. Anemia was an incidental finding on labs. No psych issues while admitted. Physical Exam Vital Signs: Temp Pulse Resp BP Pulse Ox 98.1 F 67 18 120/56 L 99 05/01/18 07:00 05/01/18 07:00 05/01/18 07:00 05/01/18 07:00 05/01/18 07:00 Intake & Output 04/30/18 05/01/18 05/02/18 06:59 06:59 06:59 Intake Total 1720 Balance 1720 Weight 56.5 kg Results Laboratory Results: 05/01/18 02:55 05/01/18 02:55 04/30/18 05/01/18 05/01/18 14:40 02:55 02:55 WBC 9.2 RBC 4.20 Hgb 8.5 L Hct 26.9 L MCV 64 L MCH 20.2 L MCHC 31.4 L RDW 18.4 H Plt Count 310 Seg Neutrophils % 61.9 Lymphocytes % 27.5 Monocytes % 6.6 Eosinophils % 3.0 Basophils % 1.0 Absolute Neutrophils 5.7 Absolute Lymphocytes 2.5 Absolute Monocytes 0.6 Absolute Eosinophils 0.3 Absolute Basophils 0.1 Sodium 138.7 Potassium 4.1 Chloride 108 H Carbon Dioxide 22 Anion Gap 9 BUN 12 Creatinine 0.64 Est GFR ( Amer) > 60 Est GFR (Non-Af Amer) > 60 Glucose 102 Calcium 9.6 Magnesium 2.0 Total Bilirubin 0.1 L AST 14 ALT 28 Alkaline Phosphatase 71 Total Protein 6.0 L Albumin 3.1 L Triglycerides 87 Cholesterol 137.86 LDL Cholesterol Direct 94 VLDL Cholesterol 17.0 HDL Cholesterol 39 L TSH Urine Color YELLOW Urine Appearance CLEAR Urine pH 6.0 Ur Specific [place] 1.009 Urine Protein NEGATIVE Urine Glucose (UA) NEGATIVE Urine Ketones NEGATIVE Urine Blood NEGATIVE Urine Nitrite NEGATIVE Ur Leukocyte Esterase NEGATIVE Urine WBC (Auto) 1 Urine RBC (Auto) 0 05/01/18 02:55 WBC RBC Hgb Hct MCV MCH MCHC RDW Plt Count Seg Neutrophils % Lymphocytes % Monocytes % Eosinophils % Basophils % Absolute Neutrophils Absolute Lymphocytes Absolute Monocytes Absolute Eosinophils Absolute Basophils Sodium Potassium Chloride Carbon Dioxide Anion Gap BUN Creatinine Est GFR ( Amer) Est GFR (Non-Af Amer) Glucose Calcium Magnesium Total Bilirubin AST ALT Alkaline Phosphatase Total Protein Albumin Triglycerides Cholesterol LDL Cholesterol Direct VLDL Cholesterol HDL Cholesterol TSH 1.85 Urine Color Urine Appearance Urine pH Ur Specific [place] Urine Protein Urine Glucose (UA) Urine Ketones Urine Blood Urine Nitrite Ur Leukocyte Esterase Urine WBC (Auto) Urine RBC (Auto) 04/30/18 04/30/18 04/30/18 12:30 12:30 14:33 Creatine Kinase 36 31 CK-MB (CK-2) 1.10 Troponin I < 0.012 04/30/18 04/30/18 05/01/18 14:33 21:03 02:55 Creatine Kinase CK-MB (CK-2) 0.95 0.79 0.74 Troponin I < 0.012 < 0.012 < 0.012 05/01/18 10:24 Creatine Kinase CK-MB (CK-2) 0.78 Troponin I < 0.012 Impressions: Chest X-Ray 04/30/18 12:05 IMPRESSION: No acute abnormality of the lungs. No focal airspace opacity. Qualifiers - * PATIENT BEING DISCHARGED WITH ANY OF THE FOLLOWING DIAGNOSIS: No VTE patient discharged on overlapping Therapy?: No Plan Discharge Plan: (1) Chest pain Is this a current diagnosis for this admission?: Yes Plan: 04/30/2018 patient is going to be admitted to telemetry for chest pain. Telemetry monitoring, cardiac enzymes x3 along with a lipid panel in the morning. Stress test was requested. Started on aspirin statins and a Lovenox 40 mg subcu daily. To place her on IV morphine 1 mg every 4 as needed for chest pain. Placed on oxygen 2 L nasal cannula. Patient is admitted under observation. 05/01-discharged on aspirin, simvastatin, with instructions to follow-up with cardiology. (2) Bipolar 1 disorder Is this a current diagnosis for this admission?: No Plan: 04/30/2018 patient is giving history of bipolar disorder she is on Lamictal, Seroquel, Valium, trazodone, Ambien plan is to restart all those medications while she was in the hospital. 05/01-continue outpatient medications. Follow with psych for medication optimization. (3) Hypertension Is this a current diagnosis for this admission?: No Plan: 04/30/2018 patient is given the history of hypertension the ER is stable. Latest blood pressure is 132/63 with heart rate in the 60s. As the home medications are reconciled we are going to resume the medications. 05/01-currently controlled (4) Anemia Is this a current diagnosis for this admission?: No Plan: 04/30/2018 patient hemoglobin is 10. Do not have the baseline hemoglobin. Anemia of chronic disease due to unknown causes. To check anemia profile. 05/01-baseline unknown. Recommend following up with primary care physician on discharge. (5) Depression Is this a current diagnosis for this admission?: No Plan: 04/30/2018 patient given the history of depression but denies any symptoms of depression today. She is on trazodone and Seroquel at home plan is to resume those medications while she was in the hospital. 05/01-does not appear to be an acute issue, however defer to psych. (6) Coronary artery disease Is this a current diagnosis for this admission?: No Plan: 04/30/2018-patient given the history of MD 15 years ago. Status post cardiac catheter time denies any stents placements. Admitted for chest pain this time plan to do the stress test tomorrow. 05/01-discharged on aspirin and statin. Patient reports history of MD, she may benefit from a beta-leanna, however her pulse and blood pressure are on the cusp of not been able to tolerate it. Defer to cardiology. She also may benefit from the use of an ARNAV or arb, will also defer this to cardiology. Disposition: Patient is agreeable to following up with cardiology, psychiatry, and primary care physician on discharge. She seems pleased with care. She is agreeable to taking medications as prescribed. She has no questions or concerns on discharge. She reports having support at home with and by her roommates.
[2018-05-01] MEDS: ACETAMINOPHEN 325 MG TABLET PO PRN (16:16)
[2018-05-01] MEDS ORDERED: ZOLPIDEM TARTRATE 5 MG TABLET PO SCH (22:00)
--- NOTE | 2018-05-02 23:11 | DRAGON STRESS TEST REPORT ---
Intravenous Lexiscan Cardiolite stress test using single photon emmision computerized tomography. Date of procedure: 05/01/2018. Ordering Provider: Dr. Encarnacion. Patient's status: In Patient Indication: Chest pain, in a patient with a history of coronary artery disease by prior cardiac catheterization.. Coronary risk factors: Age, dyslipidemia, and family history of coronary artery disease. Resting EKG: Sinus Rhythm. Nonspecific T changes anterior leads. Stress EKG: No changes of ischemia. The patient had no chest pain or discomfort, and there were no arrhythmias seen Reason for termination: Protocol. Conclusions: Normal EKG and hemodynamic response to IV Lexiscan. Nuclear data: At rest the patient was given 10.68 millicuries of technetium 99m sestamibi injected intravenously. As per protocol rest non gated SPECT images were obtained. Subsequently the patient was given intravenous Lexiscan at a dose of 0.4 mg in 5 mL intravenously, followed by flush with normal saline. Subsequently the stress dose of 32.8 millicuries of technetium 99m sestamibi was injected intravenously. As per protocol stress gated images were obtained. Nuclear interpretation: Review of images showed that a relatively unchanged perfusion defect in both the rest and stress images involving the left radial apex. This area is diminished motion contraction and thickening by gated study. The rest of the segments of the myocardium had normal perfusion at rest, and normal perfusion post stress with IV Lexiscan. The rest of the segments of the myocardium had normal motion, contraction, and thickening by gated study. T. I D. ratio was normal at 1.18. There is no transient ischemic dilatation of the left ventricle. Computer read rest, and stress left ventricular ejection fraction were 54 %, and T-tube %, respectively. Visually both the stress and rest ejection fractions were normal, and greater than 55%. Conclusion: 1. There is no scintigraphic evidence of Lexiscan induced myocardial ischemia. 2. There is scintigraphic evidence of myocardial infarction/scar involving the left ventricle apex. Recommendations: 1. Aggressive treatment of coronary artery disease. The patient has recurrent chest pain then would recommend cardiac catheterization. Patient needs close cardiology follow-up as an outpatient. 2. Aggressive risk factor modification, and treating the underlying co- morbidities. The above findings and recommendations have been discussed with the hospitalist attending physician taking care of the patient. CARLO
== END 2018-05-01 19:49 | disposition home or self-care (01) ==
LOC: ER 10:55 → EH 17:06 → 4S 19:49
PROVIDERS: ADMIT Internal Medicine; ATTEND Internal Medicine
DX: R07.9 Chest pain, unspecified (principal); G89.29 Other chronic pain; D63.8 Anemia in other chronic diseases classified elsewhere; F31.9 Bipolar disorder, unspecified; I25.10 Atherosclerotic heart disease of native coronary artery without angina pectoris; R61 Generalized hyperhidrosis; I10 Essential (primary) hypertension; I25.2 Old myocardial infarction; Z66 Do not resuscitate; Z79.899 Other long term (current) drug therapy; Z86.73 Personal history of transient ischemic attack (TIA), and cerebral infarction without residual deficits; Z87.11 Personal history of peptic ulcer disease; Z98.890 Other specified postprocedural states; Z87.19 Personal history of other diseases of the digestive system; Z82.5 Family history of asthma and other chronic lower respiratory diseases
CPT/HCPCS: 93005; 99285; 96360; 96361; 36415 ×2; 82553 ×2; 82550; 83735; 84443; 85025 ×2; 80053 ×2; 81001; 84484 ×2; 83036; 80061; 93017; 71046; 78452; 93010; A9500; J2785; A9270 ×11; J1650; J7030; Q9969; J3490